=== PATIENT | female | born 1975 | race Caucasian/White ===

== ENCOUNTER 2020-02-03 10:28 | Outpatient (REF) | payer OTHER, SELFPAY ==
--- NOTE | 2020-02-03 | XR_ITS ---
EXAMINATION: XR CHEST CLINICAL INFORMATION: Other medical treatment. COMPARISON: Chest 11/21/2018 TECHNIQUE: 2 views of the chest were obtained. FINDINGS: No significant abnormality is noted involving the heart, lungs, mediastinum, bony thorax or soft tissues. XR/XR chest 2V IMPRESSION: Unremarkable chest examination.
[2020-02-03 11:40] LABS: MANUAL DIFF FLAG NO
[2020-02-03 11:58] LABS: Basophils Percent Auto 0.3 % (0-2); Eosinophils Absolute Auto 0.1 X10*3/uL (0.0-0.4); Eosinophils Percent Auto 0.7 % (0-4); Hematocrit 37.8 % (37-47); Hemoglobin 12.7 g/dl (12.0-16.0); Imm Gran Abs Auto 0.05 X10*3/uL (0.00-0.03); Imm Gran Pct Auto 0.5 % (0.0-0.4); Lymphocytes Absolute Auto 3.3 X10*3/uL (1.2-4.9); Lymphocytes Percent Auto 34.9 % (20-40); Mean Corpuscular HGB Conc 33.6 g/dl (31.0-35.0); Mean Corpuscular Hemoglobin 31.9 pg (27.0-33.0); Mean Platelet Volume 9.6 fL (9.4-12.3); Monocytes Absolute Auto 0.6 X10*3/uL (0.1-1.2); Monocytes Percent Auto 5.9 % (2-11); Neutrophils Absolute Auto 5.5 X10*3/uL (2.0-8.3); Neutrophils Percent Auto 57.7 % (45-73); Platelet Count 313 X10*3/uL (160-400); Red Blood Count 3.98 X10*6/uL (4.20-5.50); Red Cell Distribution Width 13.2 % (11.0-16.0); White Blood Count 9.6 X10*3/uL (4.8-10.8)
[2020-02-03 12:21] LABS: Cholesterol 166 mg/dL; HDL Cholesterol 54 mg/dL; LDL Cholesterol Calculated 99 mg/dl; Triglycerides 67 mg/dL
[2020-02-03 12:45] LABS: TSH reflex Free T4 0.46 mIU/mL (0.32-4.0); Vitamin D 25-OH Total 19.3 ng/mL (>30)
[2020-02-04 04:01] LABS: Syphilis Screen Nonreactive (Nonreactive)
[2020-02-04 04:04] LABS: ~HepC Num1 0.07 S/CO (0.00-0.79); ~Hepatitis C Antibody Nonreactive (Nonreactive)
[2020-02-04 04:05] LABS: HBsAGNum1 0.27 S/CO (0.00-0.99); HIV AB/AG Nonreactive (Nonreactive); HIV Num 1 0.25 S/CO (0.00-0.99); Hepatitis B Surface Antigen Negative (Negative)
[2020-02-08 11:35] LABS: CT PCR NOT DETECTED (Not Detect.); NG PCR NOT DETECTED (Not Detect.)
== END 2020-02-03 10:29 | disposition home or self-care (01) ==
LOC: HO.LAB 10:28
PROVIDERS: PCP Family Medicine; Visit Provider Family Medicine
DX: R53.83 Other fatigue (principal); Z92.89 Personal history of other medical treatment
CPT/HCPCS: 36415; 71046; 80061; 82306; 84443; 85025; 86481; 86780; 86803; 87340; 87389; 87491; 87591

== ENCOUNTER 2021-10-10 13:10 | Outpatient (REF) | payer MEDICAID, SELFPAY ==
--- NOTE | ~2021-10-10 | US_ITS ---
EXAMINATION: US LOWER EXTREMITY VENOUS (REFLUX EXAM), BILATERAL CLINICAL INDICATION: Chronic venous insufficiency with lower extremity varicose veins, pain COMPARISON: None. TECHNIQUE: Color flow triplex imaging and compression Doppler was performed to evaluate both the deep and the superficial systems bilaterally. To evaluate the superficial system, the examination was performed in the upright position. Color-flow Doppler ultrasound and compression ultrasound were utilized. In addition, maneuvers were utilized to demonstrate reflux. FINDINGS: 1. DEEP VENOUS ULTRASOUND OF THE RIGHT LOWER EXTREMITY: Common Femoral Vein: Compressible, normal respiratory variation and augmented flow. Femoral Vein: Compressible, normal color flow and augmentation. Popliteal Vein: Compressible, normal augmentation. Deep Reflux: There is no evidence of reflux in the deep system in either the common femoral vein or the popliteal vein. There is no evidence of a Pastor's cyst. 2. SUPERFICIAL ULTRASOUND WITH DOPPLER OF RIGHT LOWER EXTREMITY: GREAT SAPHENOUS VEIN: Saphenofemoral Junction: 0.5 cm; Reflux: 0 ms Proximal Thigh: 0.3 cm; Reflux: 0 ms Mid Thigh: 0.3 cm; Reflux: 0 ms Above Knee: 0.3 cm; Reflux: 0 ms At Knee: 0.2 cm; Reflux: 0 ms Below Knee: 0.2 cm; Reflux: 0 ms Mid Calf: 0.1 cm; Reflux: 0 ms Ankle: 4.2 cm; Reflux: 0 ms DUPLICATED MEDIAL GREAT SAPHENOUS VEIN: Diameter: None Imaged Reflux: NA DUPLICATED LATERAL GREAT SAPHENOUS VEIN: Diameter: None Imaged Reflux: NA SMALL SAPHENOUS VEIN: Proximal: 0.3 cm; Reflux: 0 ms Distal: 0.2 cm; Reflux: 0 ms VEIN OF GIACOMINI: None Imaged. PERFORATORS: Location: Mid thigh Size: 0.2 cm Reflux: None VARICOSITIES: Location: None Imaged Size: NA Reflux: NA 3. DEEP VENOUS ULTRASOUND OF THE LEFT LOWER EXTREMITY: Common Femoral Vein: Compressible, normal respiratory variation and augmented flow. Femoral Vein: Compressible, normal color flow and augmentation. Popliteal Vein: Compressible, normal augmentation. Deep Reflux: There is no evidence of reflux in the deep system in either the common femoral vein or the popliteal vein. There is no evidence of a Pastor's cyst. 4. SUPERFICIAL ULTRASOUND WITH DOPPLER OF LEFT LOWER EXTREMITY: GREAT SAPHENOUS VEIN: Saphenofemoral Junction: 0.5 cm; Reflux: 0 ms Proximal Thigh: 0.3 cm; Reflux: 0 ms Mid Thigh: 0.3 cm; Reflux: 0 ms Above Knee: 0.3 cm; Reflux: 0 ms At Knee: 0.2 cm; Reflux: 0 ms Below Knee: 0.3 cm; Reflux: 0 ms Mid Calf: 0.2 cm; Reflux: 0 ms Ankle: 0.2 cm; Reflux: 0 ms DUPLICATED MEDIAL GREAT SAPHENOUS VEIN: Diameter: None Imaged Reflux: NA DUPLICATED LATERAL GREAT SAPHENOUS VEIN: Diameter: None Imaged Reflux: NA SMALL SAPHENOUS VEIN: Proximal: 0.3 cm; Reflux: 0 ms Distal: 0.2 cm; Reflux: 0 ms VEIN OF GIACOMINI: None Imaged. PERFORATORS: Location: Mid calf Size: 0.2 cm Reflux: None VARICOSITIES: Location: None Imaged Size: NA Reflux: NA US/US venous duplex LE BI IMPRESSION: Right: No significant venous insufficiency Left: No significant venous insufficiency
== END 2021-10-10 13:11 | disposition home or self-care (01) ==
LOC: HO.US 13:10
PROVIDERS: Visit Provider Family Medicine
DX: I83.813 Varicose veins of bilateral lower extremities with pain (principal); M79.604 Pain in right leg; M79.605 Pain in left leg
CPT/HCPCS: 93970

== ENCOUNTER 2021-10-12 09:58 | Outpatient (REF) | payer MEDICAID, SELFPAY ==
--- NOTE | 2021-10-12 | PFT_ITS ---
INDICATION: Asthma. SPIROMETRY: FEV1 to FVC of 79% with an FEV1 of 2.02 L, which is 79% predicted and an FVC of 2.56 L which is 82% predicted. No significant response to bronchodilators noted. To note, the FEF 25% to 75% decreased down to 49% predicted, suspicious of asthma. The maximum voluntary ventilation 59% predicted. LUNG VOLUMES: Total lung capacity 104% predicted with a residual volume 130% predicted. DIFFUSION CAPACITY: DLCO 69% predicted. COMPARISONS: None. INTERPRETATION: No obstructive ventilatory defect. No significant response to bronchodilators noted, although there is evidence of small airway disease which is suspicious for asthma. There is also moderate decrease in maximum voluntary ventilation, which could be secondary to deconditioning versus worsening dynamic inspiratory capacity. Lung volumes do demonstrate significant air trapping likely secondary to the small airway disease and there is also mild diffusion impairment. If asthma is in the differential, methacholine challenge may be helpful in assessing for hyper-reactive airways, otherwise clinical correlation warranted. Ricardo Lewis MD MR/MODL / [id number]
== END 2021-10-12 09:59 | disposition home or self-care (01) ==
LOC: HO.RESP 09:58
PROVIDERS: PCP Family Medicine; Visit Provider Family Medicine
DX: J45.40 Moderate persistent asthma, uncomplicated (principal)
CPT/HCPCS: 94060; 94727; 94729

== ENCOUNTER 2023-06-09 14:12 | Outpatient (REF) | payer BC, SELFPAY ==
[2023-06-09 16:21] LABS: Hemoglobin 10.7 g/dl (12.0-16.0); Mean Corpuscular HGB Conc 32.4 g/dl (31.0-35.0); Mean Corpuscular Volume 86.4 fL (80.0-98.0); Mean Platelet Volume 9.6 fL (9.4-12.3); Platelet Count 447 X10*3/uL (160-400); Red Blood Count 3.82 X10*6/uL (4.20-5.50); Red Cell Distribution Width 16.2 % (11.0-16.0); White Blood Count 10.3 X10*3/uL (4.8-10.8)
[2023-06-09 16:51] LABS: TSH reflex Free T4 0.93 uIU/mL (0.32-4.0)
[2023-06-10 10:17] LABS: Iron 24 mcg/dL (30-160); Percent Iron Saturation 6 % (15-50); Total Iron Binding Capacity 380 mcg/dL (228-428); Unsaturated Iron Binding 356 ug/dL
[2023-06-10 10:31] LABS: Ferritin 9 ng/mL (10-250)
== END 2023-06-09 14:13 | disposition home or self-care (01) ==
LOC: HO.HHCL 14:12
PROVIDERS: Visit Provider Advanced Practice Midwife
DX: N93.9 Abnormal uterine and vaginal bleeding, unspecified (principal); R23.3 Spontaneous ecchymoses; D62 Acute posthemorrhagic anemia
CPT/HCPCS: 36415; 82728; 83540; 84443; 85027

== ENCOUNTER 2023-06-12 14:24 | Outpatient (REF) | payer BC, SELFPAY ==
--- NOTE | ~2023-06-12 | US_ITS ---
EXAMINATION: US PELVIS CLINICAL INFORMATION: Abnormal uterine bleeding COMPARISON: Previous CT of the abdomen and pelvis October 2013 TECHNIQUE: Ultrasound of the pelvis is performed using both transabdominal and transvaginal transducers along with Doppler. Transvaginal imaging is performed due to inadequate visualization transabdominally. FINDINGS: The uterus is anteverted and measures 9 x 4 x 5 cm in dimension. Endometrial thickness measures 1.3 cm. The endometrium is heterogeneous appearing. There is an apparent focal lesion in the endometrium measuring 1.6 x 1.2 x 1.8 cm with central feeding vessel questionable for a polyp. No other focal uterine lesion. Nabothian cysts in the cervix. Normal ovaries. Right ovary measures 2.4 x 1.3 x 1.6 cm. Left ovary measures 1.6 x 1.7 x 1.4 cm. No fluid in the pelvis. US/US pelvic and transvaginal IMPRESSION: Question endometrial polyp measuring 1.6 x 1.2 x 1.8 cm.
== END 2023-06-12 14:25 | disposition home or self-care (01) ==
LOC: HO.US 14:24
PROVIDERS: PCP Family Medicine; Visit Provider Advanced Practice Midwife
DX: N93.9 Abnormal uterine and vaginal bleeding, unspecified (principal)
CPT/HCPCS: 76830; 76856

== ENCOUNTER 2023-11-10 10:46 | Outpatient (AMB) | payer BC, SELFPAY ==
--- NOTE | 2023-11-10 10:57 | MHC.OFFVIS ---
Vital Signs 11/10/23 11:03 Height 5 ft Weight 108 lb BMI 21.1 Intake Visit Reasons: AUB Vp Clinical Research Required: No Information Interpreted: non-clinical & clinical Senior Interactive Developer: Senior Interactive Developer Present (Anastacia BAUTISTA) Accompanied by: Self / Same As Patient Allergies acetaminophen [From Percocet] Allergy (Mild, Unverified 11/10/23 11:04) HIVES oxycodone [From Percocet] Allergy (Mild, Unverified 11/10/23 11:04) HIVES Is last menstrual period known: Yes Last menstrual period: 10/06/23 HPI Comments Details: Presenting complaining of irregular menstrual cycles associated with passage of blood clots and pelvic cramping. Last co testing was in 03/19 was negative Last pelvic ultrasound done in 06/24 showed the following: The uterus is anteverted and measures 9 x 4 x 5 cm in dimension. Endometrial thickness measures 1.3 cm. The endometrium is heterogeneous appearing. There is an apparent focal lesion in the endometrium measuring 1.6 x 1.2 x 1.8 cm with central feeding vessel questionable for a polyp. No other focal uterine lesion. Nabothian cysts in the cervix. Normal ovaries. Right ovary measures 2.4 x 1.3 x 1.6 cm. Left ovary measures 1.6 x 1.7 x 1.4 cm. No fluid in the pelvis. 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 Sexual orientation: Straight/Heterosexual Gender identity: Female Female Reproductive History Menstrual Date of last menstrual period: 10/06/23 control method: permanent sterilization Total pregnancies: 5 Full term: 4 Number of Living Children: 4 Ab spontaneous: 1 Review of Systems Const All systems reviewed & are unremarkable except as noted in HPI and below Card Reports as per HPI Resp Reports as per HPI GI Reports as per HPI and Reports no additional complaints Reports as per HPI Physical Exam Vital Signs: BMI result Body Mass Index 21.1 Const General: cooperative, healthy appearing and comfortable Chest Chest palpation & inspection: normal inspection of the chest and normal palpation of entire chest wall Breast/axilla inspection: normal inspection of the breasts and normal inspection of the axillae Breast/axilla palpation: normal palpation of the breasts, normal palpation of the axillae and no axillary lymphadenopathy Resp Effort & Inspection: normal respiratory effort Auscultation: clear to auscultation bilaterally Percussion: percussion normal Cardio Palpation: normal PMI Rate: regular rate Rhythm: regular rhythm Heart sounds: no murmurs and no rubs Peripheral pulses: Peripheral pulses 2+ throughout GI Inspection: Yes normal to inspection Palpation (GI): Soft to palpation, nontender, no guarding, not rigid and No hepatosplenomegaly present Percussion: Yes normal to percussion Auscultation: normal bowel sounds Rectal Exam - Female: deferred General: Yes bladder normal to palpation External Female Exam: No lesion Speculum Exam - Vagina: normal appearance of the vagina, normal palpation, normal vaginal discharge and not erythematous Speculum Exam - Cervix: normal appearance of the cervix and normal palpation Bimanual exam- vagina & uterus: normal bimanual exam, normal palpation, uterine size normal, bladder normal to palpation, consistency normal and normal palpation Bimanual Exam- Adnexa, other: normal adnexae, no masses and no tenderness Assessment & Plan Assessment & Plan (1) Abnormal uterine bleeding: Comment: Endometrial polyp by ultrasound Code(s): N93.9 - Abnormal uterine and vaginal bleeding, unspecified Category: Medical Plan: Screening mammogram ordered, Co testing done, GC and chlamydia taken CBC, TSH, prolactin, FSH/LH, HCG, ordered. Discussed with the patient the different causes of abnormal bleeding including thyroid disorders, uterine and ovarian pathology, endometrial hyperplasia, carcinoma and other potential causes. Discussed with the patient the work up including CBC (to r/o anemia), TSH, prolactin, FSH/LH, pelvic Ultrasound, endometrial sampling to r/o endometrial pathology. Discussed with the patient the finding on ultrasound showing possible endometrial polyp, recommended hysteroscopy D&C possible polypectomy/myomectomy. Discussed with the patient the procedure , all benefits and risks including but not limited to inability to complete the procedure , insufficient endometrial tissue for a complete evaluation of the endometrial cavity , bleeding, infection, possible need for blood transfusion with all its risk ( HIV,syphilis, Hepatitis, anaphylaxis shock, others..), injury to bladder, rectum, possible need for laparoscopy/laparotomy or hysterectomy. The patient verbalized understanding and signed the consent. Instructions given the patient to stay NPO after midnight the day prior to the procedure and to take only the specific medication (s) discussed the morning of the surgical procedure and to schedule a 2 week postoperative appointment All questions answered and the patient verbalized understanding. Instructed the patient to schedule an appointment for an endometrial biopsy in 2 weeks. Orders: Orders PAP + HPV E6/E7 rfx 18/45 Today N93.9 - Abnormal uterine and vaginal bleeding, unspecified MM screening mammo BI Today Z12.31 - Encounter for screening mammogram for malignant neoplasm of breast Lutenizing Hormone Today N93.9 - Abnormal uterine and vaginal bleeding, unspecified Follicle Stimulating Hormone Today N93.9 - Abnormal uterine and vaginal bleeding, unspecified CT NG by PCR Today N93.9 - Abnormal uterine and vaginal bleeding, unspecified Complete Blood Count no Diff Today N93.9 - Abnormal uterine and vaginal bleeding, unspecified TSH reflex Free T4 Today N93.9 - Abnormal uterine and vaginal bleeding, unspecified Prolactin Today N93.9 - Abnormal uterine and vaginal bleeding, unspecified HCG Quantitative Today N93.9 - Abnormal uterine and vaginal bleeding, unspecified Coding Level of Care Code New Pt Level 3 (34685) Diagnoses Abnormal uterine bleeding N93.9
[2023-11-10 11:03] VITALS: BMI 21.1
== END 2023-11-10 12:49 | disposition home or self-care (01) ==
LOC: HO.HWS 10:47
PROVIDERS: PCP Family Medicine; Visit Provider Obstetrics & Gynecology
DX: N93.9 Abnormal uterine and vaginal bleeding, unspecified (principal)
CPT/HCPCS: 99203

== ENCOUNTER 2023-11-10 10:46 | Outpatient (REF) | payer BC, SELFPAY ==
[2023-11-10 15:48] LABS: CT PCR NOT DETECTED (Not Detect.); NG PCR NOT DETECTED (Not Detect.)
[2023-11-12 14:24] LABS: HPV mRNA E6/E7 Not Detected (Not Detected)
== END 2023-11-10 10:47 | disposition home or self-care (01) ==
LOC: HO.LNP 10:46
PROVIDERS: PCP Family Medicine; Visit Provider Obstetrics & Gynecology
DX: N93.9 Abnormal uterine and vaginal bleeding, unspecified (principal)
CPT/HCPCS: 87491; 87591; 87624; 88175

== ENCOUNTER 2023-11-11 10:09 | Outpatient (REF) | payer BC, SELFPAY ==
[2023-11-11 10:56] LABS: Hematocrit 37.3 % (37.0-47.0); Hemoglobin 12.2 g/dl (12.0-16.0); Mean Corpuscular HGB Conc 32.7 g/dl (31.0-35.0); Mean Corpuscular Hemoglobin 30.1 pg (27.0-33.0); Mean Corpuscular Volume 92.1 fL (80.0-98.0); Mean Platelet Volume 9.4 fL (9.4-12.3); Platelet Count 345 X10*3/uL (160-400); Red Blood Count 4.05 X10*6/uL (4.20-5.50); Red Cell Distribution Width 15.2 % (11.0-16.0); White Blood Count 8.7 X10*3/uL (4.8-10.8)
[2023-11-11 12:04] LABS: HCG Quantitative < 2 mIU/mL; TSH reflex Free T4 0.45 uIU/mL (0.32-4.0)
[2023-11-12 12:04] LABS: Follicle Stimulating Hormone 5.8 mIU/mL; Lutenizing Hormone 4.5 mIU/mL; Prolactin 8.2 ng/mL
== END 2023-11-11 10:10 | disposition home or self-care (01) ==
LOC: HO.LAB 10:09
PROVIDERS: PCP Family Medicine; Visit Provider Obstetrics & Gynecology
DX: N93.9 Abnormal uterine and vaginal bleeding, unspecified (principal)
CPT/HCPCS: 36415; 83001; 83002; 84146; 84443; 84702; 85027

== ENCOUNTER 2023-11-14 07:14 | Day surgery (SDC) | payer BC, SELFPAY ==
--- NOTE | 2023-11-14 07:38 | MHC.SHP ---
Pre-Procedural Eval Section A - 24 Hr Update-Section A only Date of Service: 11/14/23 The patient is an INPATIENT: No Changes since office visit: No Cold of Flu in the past 2 weeks, No New Medical Problems, No Changes in Medication and No Patient answered all questions The patient has been examined within 24 hours of the surgical procedure. The History & Physical has been completed within 30 days and I have reviewed it.: Yes Section B - Complete if H&P > 30 days Chief Complaint: Abnormal uterine and vaginal bleeding, Allergies: Allergies Allergy/AdvReac Type Severity Reaction Status Date / Time acetaminophen [From Percocet] Allergy Mild HIVES Unverified 11/10/23 11:04 oxycodone [From Percocet] Allergy Mild HIVES Unverified 11/10/23 11:04 Plan Diagnosis/Plan: Unchanged I have reviewed the history and physical and performed a pertinent physical examination on my patient. No changes have occurred unless specified. Time Spent With Patient Time: Total time managing care of this patient today ____ minutes.
[2023-11-14 07:42] VITALS: BMI 20.3
[2023-11-14 07:50] LABS: UPreg QC Valid YES; Urine Pregnancy NEGATIVE (NEGATIVE)
[2023-11-14 07:51] VITALS: BP 118/75; PULSE 66; RESP 15; TEMP 36.5; O2SAT 99
[2023-11-14] MEDS: Lactated Ringers 1,000 ML 100 ML IVCONT (07:52)
--- NOTE | 2023-11-14 07:55 | P.CONAN_ITS ---
Documented by User: Rufina Cooper NP 11/12/23 13:52 HPI - Anesthesia Eval Consult details Narrative: 48yo F for D&C Hysteroscopy,possible myomectomy,possible polypectomy, PMFSH Active Problems Active Problems: All Active Problems Abnormal uterine bleeding (Acute) Past Medical History Medical History Anxiety Asthma Anemia Family History Family History Mother Asthma HTN (hypertension) Hyperlipidemia Surgical History Surgical History (Updated 11/14/23 @ 07:40 by Cici Villanueva RN) History of excision of pilonidal cyst Hx of tubal ligation Social History Social History Household Members: Spouse and Children Housing: House Alcohol intake: current Alcohol intake frequency: holidays/special occasions only Patient Tobacco Use Status: Current everyday Tobacco user Tobacco use type: Cigarette Cigarette Packs Per Day: 1 Cigarettes Per Day: 10 Years Smoked: 15 Use of substances other than those prescribed or required for medical reasons: Yes Substance Use Type Other:: last used 11/12 Substance Use Frequency: Daily Are you DNR?: No Advance Directives: No Advance Directives Information Provided: Yes Current occupational status: employed 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 Sexual orientation: Straight/Heterosexual Gender identity: Female Meds Allergies Allergy/AdvReac Type Severity Reaction Status Date / Time oxycodone [From Percocet] Allergy Mild HIVES Verified 11/14/23 07:40 Home Medications ?Medication ?Instructions ?Recorded ?Confirmed ?Last Taken ?Type albuterol sulfate 90 mcg/actuation 2 puff inhalation Q6H PRN wheezing 11/10/23 11/14/23 Unknown History aerosol inhaler (Ventolin HFA) fluticasone furoate 100 1 inh inhalation DAILY 11/10/23 11/14/23 Unknown History mcg/actuation blister powder for inhalation (Arnuity Ellipta) fluticasone propionate 50 1 spray intranasal BID PRN Allergy 11/14/23 11/14/23 Unknown History mcg/actuation nasal Symptoms spray,suspension Assessment and Plan Assessment Anesthesia Assessment: Chart Reviewed Documented by User: Cici Gonzalez DO 11/14/23 07:55 [facility] Past Medical History Medical History Anxiety Asthma Anemia Family History Family History Mother Asthma HTN (hypertension) Hyperlipidemia Family history of problems with anesthesia: No Surgical History Surgical History (Updated 11/14/23 @ 07:40 by Cici Villanueva RN) History of excision of pilonidal cyst Hx of tubal ligation History of Problems with Anesthesia: No Social History Social History Household Members: Spouse and Children Housing: House Alcohol intake: current Alcohol intake frequency: holidays/special occasions only Patient Tobacco Use Status: Current everyday Tobacco user Tobacco use type: Cigarette Cigarette Packs Per Day: 1 Cigarettes Per Day: 10 Years Smoked: 15 Use of substances other than those prescribed or required for medical reasons: Yes Substance Use Type Other:: last used 11/12 Substance Use Frequency: Daily Are you DNR?: No Advance Directives: No Advance Directives Information Provided: Yes Current occupational status: employed 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 Sexual orientation: Straight/Heterosexual Gender identity: Female Meds Allergies Allergy/AdvReac Type Severity Reaction Status Date / Time oxycodone [From Percocet] Allergy Mild HIVES Verified 11/14/23 07:40 Home Medications ?Medication ?Instructions ?Recorded ?Confirmed ?Last Taken ?Type albuterol sulfate 90 mcg/actuation 2 puff inhalation Q6H PRN wheezing 11/10/23 11/14/23 Unknown History aerosol inhaler (Ventolin HFA) fluticasone furoate 100 1 inh inhalation DAILY 11/10/23 11/14/23 Unknown History mcg/actuation blister powder for inhalation (Arnuity Ellipta) fluticasone propionate 50 1 spray intranasal BID PRN Allergy 11/14/23 11/14/23 Unknown History mcg/actuation nasal Symptoms spray,suspension Exam Exam Date and Time: 11/14/23 0754 Height,Weight and Vital Signs: Height 5 ft Weight 47.174 kg Vital Signs Temperature 97.7 F 11/14/23 07:51 Pulse Rate 66 11/14/23 07:51 Respiratory Rate 15 11/14/23 07:51 Blood Pressure 118/75 11/14/23 07:51 Pulse Oximetry 99 11/14/23 07:51 Oxygen Delivery Method Room Air 11/14/23 07:51 Temperature 97.7 F 11/14/23 07:51 Pulse Rate 66 11/14/23 07:51 Respiratory Rate 15 11/14/23 07:51 Blood Pressure 118/75 11/14/23 07:51 Pulse Oximetry 99 11/14/23 07:51 Oxygen Delivery Method Room Air 11/14/23 07:51 Airway Mallampati Class: I TM Dist: >3cm Neck ROM: Full Loose/Missing/Broken Teeth: Yes (missing molars left side of mouth) Heart: S1S2 Lungs: CTAB Assessment and Plan Assessment Anesthesia Assessment: Anesthesia Plan Discussed and Chart Reviewed Final Anesthetic Review Family History of Problems with Anesthesia: No History of Problems with Anesthesia: No NPO: Yes ASA Class: II Final Preanesthetic Review: No Changes in Pt Med Stat, Meds/Allgs Chart Reviewed, Consent Obtained/Reviewed and Anes Risks/Benef Reviewed Patient Risk: Low Procedure Risk: Low Anesthetic Plan Anesthetic Plan: GA and Agree w/ Assess. and Plan Disposition: Standard PACU
--- NOTE | 2023-11-14 08:59 | P.BOP_ITS ---
Brief Operative Note Date of Service: 11/14/23 Pre-op diagnosis: Abnormal uterine bleeding, endometrial polyp by ultrasound Post-op diagnosis: same (Endometrial polyp) Procedure: Hysteroscopy D&C, Polypectomy Surgeon: Yovanny Horne MD Anesthesia: GLMA Was an Dynamics Ax Consultant used for this Procedure?: No Estimated blood loss (mL): 0 Pathology: other (Endometrial Scrapping. Polyp) Condition: stable Disposition: PACU
--- NOTE | 2023-11-14 09:00 | W.PM.OPN ---
Operative Note Operative Note Date of Service: 11/14/23 Narrative: Preop Diagnosis: Abnormal uterine bleeding, Endometrial polyp by US Operation: Diagnostic Hysteroscopy, Dilataion & Curettage and polypectomy Post Op Diagnosis: Endometrial Polyp QBL: Minimal Anesthesia: GLMA Surgeon: Yovanny Horne MD General Ledger Accountant: None Complication: None Pathology: Endometrial Scrapings, Endometrial polyp Procedure: The patient was put in the dorsal lithotomy position, scrubbed, and draped in the usual manner. A sterile speculum was inserted in the patient's vagina. The anterior lip of the cervix was grasped with a single tooth tenaculum. The cervix was dilated up to 5 mm, then the scope was inserted in the patient's uterus. Inspection revealed endometrial polyp. The Myosure Reach device was used; it was introduced through the operative channel and polypectomy done with no complications. The scope was then taken out from the uterine cavity, sharp curettings was carried on with minimal to moderate amount of tissues retrieved. At the end of the procedure, all instruments were taken out of the patient uterine and vaginal cavity. The single tooth tenaculum was removed and homeostasis was assured using pressure,. The patient tolerated the procedure well and was transferred to the PACU in a stable condition.
[2023-11-14 09:04] VITALS: BP 130/87; PULSE 80; RESP 14; TEMP 36.3; O2SAT 99
[2023-11-14 09:10] VITALS: BP 121/82; PULSE 81; RESP 14; O2SAT 99
[2023-11-14 09:15] VITALS: BP 112/75; PULSE 75; RESP 16; O2SAT 99
[2023-11-14 09:20] VITALS: BP 121/76; PULSE 75; RESP 16; O2SAT 99
[2023-11-14 09:35] VITALS: BP 120/83; PULSE 77; RESP 16; TEMP 36.1; O2SAT 100
== END 2023-11-14 10:10 | disposition home or self-care (01) ==
PROVIDERS: PCP Family Medicine; Visit Provider Obstetrics & Gynecology
PROC: 0UDB8ZZ Extraction of Endometrium, Via Natural or Artificial Opening Endoscopic (ICD-10-PCS; CPT 58558; principal; 2023-11-14 08:30)
DX: C54.1 Malignant neoplasm of endometrium (principal); N84.0 Polyp of corpus uteri; D64.9 Anemia, unspecified; J45.909 Unspecified asthma, uncomplicated; F41.9 Anxiety disorder, unspecified; Z98.51 Tubal ligation status; Z88.5 Allergy status to narcotic agent; E78.5 Hyperlipidemia, unspecified; F17.210 Nicotine dependence, cigarettes, uncomplicated; Z79.51 Long term (current) use of inhaled steroids
CPT/HCPCS: 58558; 81025; 88305; 88341; 88342; 88360; J1885; J2250; J2704; J3010

== ENCOUNTER → 2023-11-14 07:14 | Outpatient (BNV) | payer BC, SELFPAY | PROVIDERS: PCP Family Medicine; Visit Provider Obstetrics & Gynecology | DX: N84.0 Polyp of corpus uteri (principal); N93.9 Abnormal uterine and vaginal bleeding, unspecified | CPT/HCPCS: 58558 ==

== ENCOUNTER 2023-11-19 09:20 | Outpatient (AMB) | payer BC, SELFPAY ==
--- NOTE | 2023-11-19 09:21 | A.OFFVIS_ITS ---
Vital Signs 11/19/23 09:22 Height 5 ft Weight 108 lb BMI 21.1 Intake Visit Reasons: post op Recreation Coordinator Required: No Information Interpreted: non-clinical & clinical Accompanied by: Daughter Allergies oxycodone [From Percocet] Allergy (Mild, Verified 11/19/23 09:23) HIVES HPI Comments Details: The patient is presenting post hysteroscopy D&C done on 11/14/2023. No complaints minimal vaginal bleeding no feverishness chills or abdominal pain. The pathology showed the following: A. Endometrium, polypectomy: Endometrial adenocarcinoma, endometrioid type, FIGO grade 2, in a background of extensive endometrioid intraepithelial neoplasia/atypical hyperplasia (EIN/AH). B. Endometrium, curettage: Endometrial adenocarcinoma, endometrioid type, FIGO grade 2, in a background of endometrioid intraepithelial neoplasia/atypical hyperplasia (EIN/ AH) with secretory changes. COMMENT: Immunohistochemical studies for DNA mismatch repair proteins have been ordered and results will be reported in an addendum 11/10/2023 co testing was negative 06/24 Pelvic ultrasound showed the following: The uterus is anteverted and measures 9 x 4 x 5 cm in dimension. Endometrial thickness measures 1.3 cm. The endometrium is heterogeneous appearing. There is an apparent focal lesion in the endometrium measuring 1.6 x 1.2 x 1.8 cm with central feeding vessel questionable for a polyp. No other focal uterine lesion. Nabothian cysts in the cervix. Normal ovaries. Right ovary measures 2.4 x 1.3 x 1.6 cm. Left ovary measures 1.6 x 1.7 x 1.4 cm. No fluid in the pelvis. 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 Sexual orientation: Straight/Heterosexual Gender identity: Female Review of Systems Const All systems reviewed & are unremarkable except as noted in HPI and below Reports as per HPI and Reports no additional complaints GI Reports no additional complaints Reports no additional complaints Physical Exam Vital Signs: BMI result Body Mass Index 21.1 Assessment & Plan Assessment & Plan (1) Endometrial adenocarcinoma: Comment: Endometrioid grade 2 Code(s): C54.1 - Malignant neoplasm of endometrium Category: Medical Plan: Discussed with the patient the pathology results, the recommended surgical staging procedure, and the prognosis. The patient was referred to Branch Operations Specialist Onc for further management. All questions answered, the patient verbalized understanding. Appointment at [facility] table games shift manager Oncology scheduled on 11/[address] Whaley. The patient is aware. Orders: Referrals Gynecologic Oncology Referral C54.1 - Malignant neoplasm of endometrium Coding Level of Care Code Est Pt Level 3 (67381) Diagnoses Endometrial adenocarcinoma C54.1
[2023-11-19 09:22] VITALS: BMI 21.1
== END 2023-11-19 10:41 | disposition home or self-care (01) ==
LOC: HO.HWS 09:20
PROVIDERS: PCP Family Medicine; Visit Provider Obstetrics & Gynecology
DX: C54.1 Malignant neoplasm of endometrium (principal)
CPT/HCPCS: 99213

== ENCOUNTER → 2023-11-19 09:20 | Outpatient (BNVA) | payer BC, SELFPAY | PROVIDERS: PCP Family Medicine; Visit Provider Obstetrics & Gynecology ==

== ENCOUNTER → 2023-12-01 09:45 | Outpatient (BNV) | payer BC, SELFPAY | PROVIDERS: PCP Family Medicine; Visit Provider Internal Medicine | DX: Z12.31 Encounter for screening mammogram for malignant neoplasm of breast (principal) | CPT/HCPCS: 77063; 77067 ==

== ENCOUNTER 2023-12-01 09:49 | Outpatient (REF) | payer BC, SELFPAY ==
--- NOTE | ~2023-12-01 | MM_ITS ---
EXAMINATION: MM SCREENING DIGITAL BREAST TOMOSYNTHESIS, BILATERAL CLINICAL INFORMATION: Screening. Asymptomatic. COMPARISON: Mammography: Comparison is made with available priors TECHNIQUE: Digital breast mammography with tomosynthesis is performed in both the craniocaudal and mediolateral oblique views along with computer-aided detection (CAD). FINDINGS: There are scattered areas of fibroglandular density (ACR BI-RADS breast composition Category b). Left: There are no significant masses, abnormal calcifications, or other abnormalities. Right: Asymmetry superior breast posterior depth on MLO view. No suspicious calcifications or other abnormal findings. MM/MM tomosynthesis screening BI IMPRESSION: Additional imaging is recommended ASSESSMENT: BI-RADS BI-RADS 0 - Incomplete: Needs additional Imaging. RECOMMENDATION: 1. Additional views of the right breast 2. Targeted ultrasound if warranted after review of the additional views. 3. Radiology department staff will contact the patient for additional imaging. Additional Imaging required This examination should not preclude the clinical evaluation of a suspicious palpable abnormality. This patient's information was entered into a reminder system with a target due date for their next mammogram. Electronically signed by: Chantell Stein DO 12/11/2023 06:35 PM EDT
== END 2023-12-01 09:50 | disposition home or self-care (01) ==
LOC: HO.MAMMO 09:49
PROVIDERS: PCP Family Medicine; Visit Provider Obstetrics & Gynecology
DX: Z12.31 Encounter for screening mammogram for malignant neoplasm of breast (principal)
CPT/HCPCS: 77063; 77067

== ENCOUNTER 2023-12-30 13:15 | Outpatient (REF) | payer BC, SELFPAY ==
--- NOTE | ~2023-12-30 | MM_ITS ---
EXAMINATION: MM DIAGNOSTIC DIGITAL BREAST TOMOSYNTHESIS, RIGHT US BREAST LIMITED, RIGHT MAMMOGRAPHY: CLINICAL INFORMATION: Diagnostic; evaluate one view asymmetric density upper outer right breast seen on MLO view only, posterior depth. This has approximately 4 associated punctate calcifications . COMPARISON: Mammography: 12/01/2023, 10/06/2017. TECHNIQUE: Digital breast tomosynthesis is performed in the following views: Full field 3-D exaggerated lateral right CC view, as well as a 3-D spot compression right MLO view. FINDINGS: There are scattered areas of fibroglandular density (ACR BI-RADS breast composition Category b). Examination demonstrates a mildly lobulated oval density in the far upper far outer posterior right breast, with a few associated punctate calcifications (approximately 4). In retrospect, in 2018, this was likely present and appears unchanged in morphology and size. No definite correlate on the normal CC projection due to the posterior lateral location, with a definite correlate seen on the exaggerated lateral CC view right breast. This could be a prominent glandular focus versus a fibroadenoma or variant which has begun to calcify. This will be evaluated with ultrasound. ULTRASOUND: CLINICAL INFORMATION: As above COMPARISON: None TECHNIQUE: Targeted sonographic evaluation was performed using a high frequency linear transducer. Attention to the upper outer quadrant of the right breast was given. Selected archived documentation. FINDINGS: RIGHT BREAST: There is a mixture of fatty and fibroglandular tissue. No suspicious mass is present. No cystic abnormalities. Appears to be a prominent lobule of breast tissue with associated specular punctate echoes suggesting calcifications. This measures similarly and is in the appropriate location of the mammographic index finding of concern. No definite suspicious correlate. This is consistent with a lobule of normal breast tissue with benign calcifications. There are no suspicious findings. MM/MM tomosynthesis added views R IMPRESSION: -There are no findings suspicious for malignancy right breast. -Index mammographic abnormality in the upper outer right breast, posterior one third, correlates on ultrasound with a prominent parenchymal lobule. These are benign findings and no further follow-up recommended. -Recommend the patient resume routine annual screening. OVERALL ASSESSMENT: Mammography: BI-RADS 2 - Benign Findings Ultrasound: BI-RADS 2 - Benign Findings RECOMMENDATION: 1 year F/U This patient's information was entered into a reminder system with a target due date for their next mammogram. Electronically signed by: Cali Aguilar MD 12/30/2023 02:24 PM EDT
== END 2023-12-30 13:16 | disposition home or self-care (01) ==
LOC: HO.MAMMO 13:15
PROVIDERS: PCP Family Medicine; Visit Provider Obstetrics & Gynecology
DX: N64.89 Other specified disorders of breast (principal)
CPT/HCPCS: 76642; 77061; 77065

== ENCOUNTER → 2023-12-30 13:30 | Outpatient (BNV) | payer BC, SELFPAY | PROVIDERS: PCP Family Medicine; Visit Provider Radiology Diagnostic Radiology | DX: R92.1 Mammographic calcification found on diagnostic imaging of breast (principal) | CPT/HCPCS: 76642; 77061; 77065 ==

== ENCOUNTER 2024-11-03 14:55 | Outpatient (REF) | payer BC, SELFPAY ==
--- NOTE | ~2024-11-03 | XR_ITS ---
EXAMINATION: XR KNEE, LEFT CLINICAL INFORMATION: left knee pain COMPARISON: None available. TECHNIQUE: AP and lateral views of the left knee. FINDINGS: There is no joint effusion. Joint spaces are preserved. There are no osteophytes. No fracture is identified. XR/XR knee LT 2V IMPRESSION: Unremarkable left knee. Electronically signed by: Thang Higgins MD 11/03/2024 03:27 PM EDT
[2024-11-03 16:41] LABS: Hemoglobin A1C 123.8398 umol/L; Total Hemoglobin (HGBA1C) 3485.6912 umol/L
[2024-11-03 16:47] LABS: Anion Gap 11 (12-20); Blood Urea Nitrogen 15 mg/dL (9-16); Calcium 9.1 mg/dL (8.4-10.2); Carbon Dioxide 25 mmol/L (22-29); Chloride 107 mmol/L (96-108); Cholesterol 184 mg/dL (<200); Estimated Glomerular Filt Rate > 60; HDL Cholesterol 54 mg/dL (>40); Potassium 3.9 mmol/L (3.3-5.1); Sodium 139 mmol/L (135-145); Triglycerides 348 mg/dL (<150)
--- OUTSIDE RECORDS SUMMARY | 2024-11-03 17:09 | XMS_ITS | Encounter Summary ---
Author Organization [employer] Address [address] [facility] 7 [place] [address] Care Team Providers Care Edi Programmer Analyst Name Role Phone Lisbet Ribeiro MD Primary Care Provider [phone] Reason for Visit * Reason Onset Date Comments Appointment Request 07/13/2024 Encounter Details Date Type Department Care Team ([facility] Contact Info) Description 07/13/2024 Telephone [facility] MEDICINE [address] [place], [place] [phone] Lisbet Ribeiro MD [address] [place], [place] [phone] Appointment Request Social History Tobacco Use Types Packs/Day Years Used Date Smoking Tobacco: Every Day Cigarettes Passive Smoke Exposure: Current Smokeless Tobacco: Never Alcohol Use Standard Drinks/Week Comments Not Currently 0 (1 standard drink = 0.6 oz pur e alcohol) Depression Answer Date Recorded Patient Health Questionnaire-9 Score 5 07/02/2023 Patient Health Questionnaire-9 Score 5 07/02/2023 Last PHQ-9: Questionnaire Data Not on file 0 07/02/2023 Housing Stability Answer Date Recorded What is your housing situation today? I have christopher claudio 07/02/[address] you li ve. Do you have problems with any of the following? None of the above 07/02/2023 Food Insecurity Answer Date Recorded Within the past 12 months, y ou worried that your food would run out before you got money to buy more: Never True 07/02/2023 Within the past 12 months,th e food you bought just didn't last and you didn't have enough money to get more: Never True 03/2023 Transportation Answer Date Recorded In the past 12 months, has l ack of transportation kept you from medical appts, meetings, work or from getting things needed for daily living? No 07/02/2023 Utilities Answer Date Recorded In the past 12 months, has t he electric, gas, oil or water company threatened to shut off services in your home? No 07/02/2023 Depression Answer Date Recorded Patient Health Questionnaire-2 Score 2 07/02/2023 Comments No Sex and Gender Information Value Date Recorded Sex Assigned at Female 12/31/2021 10:15 AM EDT Legal Sex Female 10:15 AM EDT Gender Identity Female 12/31/2021 10:15 AM EDT Sexual Orientation Straight 12/31/2021 10 :15 AM EDT documented as of this encounter Miscellaneous Notes * Telephone Encounter - Rody Caro - 07/13/2024 11:15 AM EDT Tc from pt requesting a physical appt Machine Tool Mechanic unable to find an appt documented in this encounter Plan of Treatment Not on file documented as of this encounter Visit Diagnoses Not on filedocumented in this encounter Additional Health Concerns Assessment Noted Time PHQ-9 Depression Total Score: 5 07/02/19 24 10:53 AM EDT documented as of this encounter Care Teams Edi Programmer Analyst Relationship Specialty Start Date End Date Lisbet Ribeiro MD [address] [place] [id number] PCP - General Family Medicine 01/01/12 documented as of this encounter
--- OUTSIDE RECORDS SUMMARY | 2024-11-03 17:09 | XMS_ITS | Encounter Summary ---
Author Organization [employer] Address [address] [facility] [address] [place] [address] Care Team Providers Care Help Desk Supervisor Name Role Phone Lisbet Ribeiro MD Primary Care Provider [phone] Reason for Visit * Reason Comments Med Refill Encounter Details Date Type Department Care Team ([facility] Contact Info) Description 08/08/2023 Refill [facility] MEDICINE [address] [place], [place] [phone] Nina Shearer CNM [address] [place] [address] Social History Tobacco Use Types Packs/Day Years [...] encounter Miscellaneous Notes * Telephone Encounter - Randi Velez RN - 08/08/2023 1:19 PM EDT TC placed to pt [phone] in regards to below. Pt informed she needs to have BW completed beforemedication can be sent to the lab to ensure she still needs iron supplementation. Pt verbalized understanding and reports she will have BW completed on Friday. Pt to f/u PRN. * Telephone Encounter - Nina Shearer CNM - 08/08/2023 10:01 AM EDT Please ask her to get labs ordered from 07/2023 to determine if she needs to continue. Thanks! documented in this encounter Plan of Treatment Not on file documented as of this encounter Visit Diagnoses Not on filedocumented in this encounter Additional Health Concerns Assessment Noted Time PHQ-9 Depression Total Score: 5 07/02/19 24 10:53 AM EDT documented as of this encounter Care Teams Help Desk Supervisor Relationship Specialty Start Date End Date Lisbet Ribeiro MD [address] [place] [address] PCP - General Family Medicine 01/01/12 documented as of this encounter
--- OUTSIDE RECORDS SUMMARY | 2024-11-03 17:09 | XMS_ITS | Encounter Summary ---
Author Organization [employer] Address [address] [place] [address] [address] [place] [address] Care Team Providers Care Material Engineer Name Role Phone Lisbet Ribeiro MD Primary Care Provider [phone] Encounter Details Date Type Department Care Team (Late st Contact Info) Description 02/28/2022 Abstract [facility] MEDICINE [address] [place], [place] [phone] Lisbet Ribeiro MD [address] [place], [place] [phone] Social History Tobacco Use Types Packs/Day Years Used Date Smoking Tobacco: Never Assessed Comments Unknown Sex and Gender Information Value Date Recorded Sex Assigned at Female 12/31/2021 10:15 AM EDT Legal Sex Female 10:15 AM EDT Gender Identity Female 12/31/2021 10:15 AM EDT Sexual Orientation Straight 12/31/2021 10 :15 AM EDT documented as of this encounter Plan of Treatment Not on file documented as of this encounter Visit Diagnoses Not on filedocumented in this encounter Care Teams Material Engineer Relationship Specialty Start Date End Date Lisbet Ribeiro MD [address] [place] [address] PCP - General Family Medicine 01/01/12 documented as of this encounter
--- OUTSIDE RECORDS SUMMARY | 2024-11-03 17:09 | XMS_ITS | Clinical Summary ---
Author Organization [address] Address [address] [place] [address] Phone Care Team Providers Care Linux Devops Engineer Name Role Phone Unavailable Primary Care Provider Unavailabl e Social History Tobacco Use Types Packs/Day Years Used Date Smoking Tobacco: Never Assessed Comments Unknown Sex and Gender Information Value Date Recorded Sex Assigned at Not on file Legal Sex Female 5:44 AM EST Gender Identity Not on file Sexual Orientation Not on file Plan of Treatment Health Maintenance Due Date Last Done Comments Breast Cancer Screening 1977 DTaP,Tdap,and Td Vaccines (1 - Tdap) 1996 Hepatitis B Vaccines (1 of 3 - 19+ 3-dose series) 1996 Cervical Cancer Screening: P ap Smear 1998 Depression Screening 03/03/2024 COVID-19 Vaccine ( - 2023-2 5 season) 2024 Influenza Vaccine (#1) 2024 HIB Vaccines Aged Out No longer eligi ble based on patient's age to complete this topic HPV Vaccines Aged Out No longer eligi ble based on patient's age to complete this topic Hepatitis A Vaccines Aged Out No long er eligible based on patient's age to complete this topic IPV Vaccines Aged Out No longer eligi ble based on patient's age to complete this topic MMR Vaccines Aged Out No longer eligi ble based on patient's age to complete this topic Meningococcal ACWY Vaccine Aged Out N o longer eligible based on patient's age to complete this topic Meningococcal B Vaccine Aged Out No l onger eligible based on patient's age to complete this topic Pneumococcal Vaccine: Pediat rics (0 to 5 Years) and At-Risk Patients (6 to 49 Years) Aged Out No longer eligible b ased on patient's age to complete this topic RSV Immunization Patients Un ximena 20 months Aged Out No longer eligible b ased on patient's age to complete this topic Varicella Vaccines Aged Out No longer eligible based on patient's age to complete this topic
--- OUTSIDE RECORDS SUMMARY | 2024-11-03 17:09 | XMS_ITS | Clinical Summary ---
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 chlorhexidine (Peridex) 0.12 % solution RINSE MOUTH WITH 15ML (1 CAPFUL) FOR 30 SECONDS IN MORNING AND EVENING AFTER BRUSHING, THEN SPIT 2 Active fluticasone (Flonase) 50 MCG/ACT nasal spray Administer 1 spray into affected nostril(s) at bed time. 1 Active loratadine (Claritin) 10 MG tablet Take 1 tablet by mouth at bed time. 1 Active nicotine polacrilex (Commit) 4 MG lozenge Take 1 tablet by mouth every 2 (two) hours. 1 Active ibuprofen 600 MG tablet One tablet every 8 hours with food x 7 days 21 tablet 1 4 Active fluticasone furoate (Arnuity Ellipta) 100 MCG/ACT inhaler INHALE 1 PUFF BY MOUTH EVERY DAY RINSE MOUTH AFTER USING. 30 each 2 4 Active Ventolin HFA 108 (90 Base) MCG/ACT inhaler INHALE 2 PUFFS EVERY 6 HOURS NEEDED FOR WHEEZING 18 g 1 4 Active cholecalciferol (Vitamin D-3) 50 MCG (2000 UT) capsule Take 1 capsule (50 mcg) by mouth Once per day. 90 capsule 3 4 Active escitalopram (Lexapro) 5 MG tablet Take 2 tablets by mouth daily 60 tablet 3 5 Active Active Problems Problem Noted Date Diagnosed Date S/P total hysterectomy and bilateral salpingo-oo phorectomy 01/11/2024 Assessment & Plan (01/11/2024 5:32 PM EST): - total laparoscopic hysterectomy and bilateral salpingo-oophorectomy for endometrial cancer on 12/19/[address] Rojas - high risk for osteoporosis - evaluate with DEXA At high risk for osteoporosis 01/11/2024 Assessment & Plan (01/11/2024 5:47 PM EST): - risk factors: s/p BSO / ovarian insufficiency; smoking; BMI < 20 (not current); vitamin D deficiency - current 10-year major fracture risk is 3.9% < 8.4% - consider reassessing again in 1 year for early osteoporosis screening with DEXA - optimize risk factor management Endometrial cancer 11/19/2023 Assessment & Plan (01/06/2024 12:11 PM EST): - [facility] - [facility] - Endometrial biopsy on 11/14/23. 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 - s/p TLH/BSO on 12/19/[address] Anglin - patient has appointment today with Dr. Anglin to discuss further management plan Assessment & Plan (11/19/2023 6:21 AM EDT): - AUB - [facility]. - Endometrial biopsy on 11/14/23. 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 - Anemia 07/06/2023 Assessment & Plan (07/06/2023 6:31 AM EDT): - in a setting of AUB - continue current iron supplementation and repeat CBC in 3 mo Chronic pain of right knee 07/03/2023 Assessment & Plan (01/06/2024 12:12 PM EST): - X-rays of right knee ordered for further evaluation - patient is interested in PT Assessment & Plan (07/03/2023 12:49 AM EDT): - X-rays of right knee ordered for further evaluation Syncope 07/03/2023 Assessment & Plan (07/06/2023 6:25 AM EDT): - several syncopal episodes - SHYANN in 2017 and Holter monitor in 2019, which showed mostly normal sinus rhythm, with extremely rare premature beats - most recent episode in May 2023, seen in ED. Head CT was normal Palpitation 07/03/2023 Assessment & Plan (07/06/2023 6:23 AM EDT): - several syncopal episodes - SHYANN in 2017 and Holter monitor in 2019, which showed mostly normal sinus rhythm, with extremely rare premature beats Bilateral leg pain 04/01/2022 Assessment & Plan (01/06/2024 11:29 AM EST): - venous insufficiency? - evaluated with venous study in Oct 2021, which showed no significant venous insufficiency - leg elevation - avoid rapid weight gain without exercising; gradual weight gain with exercise - evaluate with X-ray Assessment & Plan (04/01/2022 12:38 PM EST): - venous insufficiency? - evaluated with venous study in Oct 2021, which showed no significant venous insufficiency - leg elevation - avoid rapid weight gain without exercising; gradual weight gain with exercise - evaluate with X-ray Pain of right heel 04/01/2022 Assessment & Plan (04/01/2022 12:13 PM EST): - likely plantar fasciitis, possible Achilles tendonitis - ice, judicious use of NSAIDs, stretching exercise, comfortable shoes - refer to physical therapy - pt declined a referral to specialist at this time Tobacco use 04/01/2022 Assessment & Plan (01/06/2024 12:13 PM EST): - continue working on smoking cessation Assessment & Plan (07/06/2023 6:24 AM EDT): - continue working on smoking cessation Assessment & Plan (04/01/2022 12:30 PM EST): - continue working on smoking cessation Generalized anxiety disorder 02/28/2022 Assessment & Plan (01/06/2024 12:13 PM EST): - previously connected with [facility]. Dr. Silva - previously taking medications, but she is no longer taking it or seeing [facility] provider - patient agreed to restart counseling. Will refer to S. - patient is also interested in medication. Will start Lexapro Assessment & Plan (07/06/2023 6:26 AM EDT): - previously connected with [facility]. Dr. Silva - previously taking medications, but she is no longer taking it or seeing [facility] provider - continue taking care of behavioral health Assessment & Plan (04/01/2022 12:18 PM EST): - previously connected with [facility]. Dr. Silva - previously taking medications, but she is no longer taking it or seeing [facility] provider - continue taking care of behavioral health Posttraumatic stress disorder 02/03/2017 Assessment & Plan (07/06/2023 6:26 AM EDT): - previously seeing behavioral health service provider - patient is able to contract her safety today Vitamin D deficiency 10/22/2016 Assessment & Plan (01/11/2024 5:51 PM EST): - check vitamin D - previously on Vitamin D 2000 units daily - now at even higher risk for osteoporosis - restart Vit D Assessment & Plan (07/06/2023 6:24 AM EDT): - check vitamin D and Tx accordingly Allergic rhinitis 04/28/2014 Assessment & Plan (07/06/2023 6:26 AM EDT): - continue loratadine and fluticasone nasal - work on smoking cessation Assessment & Plan (04/01/2022 12:36 PM EST): - continue loratadine and fluticasone nasal - work on smoking cessation Asthma 12/14/2012 Assessment & Plan (01/06/2024 11:29 AM EST): - 10/12/21 PFT small airway disease, recommended methacholine challenge test - continue albuterol HFA prn - previously on Flovent HFA, but has not been adherent; will switch to mometasone (Asmanex) - consider ICS / LABA prn - schedule methacholine challenge test - work on smoking cessation Assessment & Plan (07/06/2023 6:30 AM EDT): - 10/12/21 PFT small airway disease, recommended methacholine challenge test - continue albuterol HFA prn - previously on Flovent HFA, but has not been adherent; will switch to mometasone (Asmanex) - consider ICS / LABA prn - schedule methacholine challenge test - work on smoking cessation Assessment & Plan (04/01/2022 12:36 PM EST): - 10/12/21 PFT small airway disease, recommended methacholine challenge test - continue albuterol HFA prn - previously on Flovent HFA, but has not been adherent - consider ICS / LABA prn - schedule methacholine challenge test - work on smoking cessation Resolved Problems Problem Noted Date Diagnosed Date Resolved Date Abnormal uterine bleeding (AUB) 07/06/2023 01/11/2024 Assessment & Plan (07/06/2023 6:30 AM EDT): - US on 06/12/23 showed endometrial polyp - upcoming appointment with [facility] Tinea pedis of both feet 04/01/202207/2023 Assessment & Plan (04/01/2022 12:14 PM EST): - aerate between toes - terbinafine topical Underweight 12/14/2012 01/11/2024 Encounters Date Type Department Care Team Description 09/09/2024 Refill [facility] [address] [place] [address] Lisbet Ribeiro MD 09/08/2024 Telephone [facility] [address] [facility] [place] [address] Jazmín Greco MA chart prep 08/31/2024 Patient Outreach [facility] [address] [place] [address] Lisbet Ribeiro MD Pre-visit Planning ([facility] unable to reach [facility]) from Last 3 Months Immunizations Immunization Administration Dates Next Due DTaP 06/18/1980, 9,01/16/1978,12/18,1977 Hep B, adult 03/18/2013,08/13/2007,09/18/2006 IPV 07/30/1978, 8,1977,10/18 Influenza injectable quadriv alent IIV4 with preservative 02/03/2017,12/29/2014 Influenza injectable quadriv alent preservative free 01/25/2020,12/01/2018,03/26/2016,04/28 MMR 04/07/1991,07/30/1978 Pfizer Covid-19 Vaccine 12+ 07/02/2023,0 08/01/2021,08/15/2020,07/21 Pneumococcal Conjugate PCV 20 07/02/2023 Pneumococcal Polysaccharide PPSV23 12/14/2012 TD (adult), 2 Lf tetanus tox oid, preservative free, adsorbed 09/09/2003 Tdap 07/02/2023,12/14/2012 Social History Tobacco Use Types Packs/Day Years [...] Orientation Straight 12/31/2021 10 :15 AM EDT Last Filed Vital Signs Vital Sign Reading Time Taken Comments Blood Pressure 111/76 01/06/2024 11:12 AM EST Pulse 96 01/06/2024 11:12 AM EST Temperature 36.1 C (96.9 F) 01/06/2024 11:12 AM EST Respiratory Rate 12 01/06/2024 11:12 AM EST Oxygen Saturation 98% 01/06/2024 11:12 AM EST Inhaled Oxygen Concentration - - Weight 47.7 kg (105 lb 2 oz) 01/06/2024 11:12 AM EST Height 152.1 cm (4' 11.88 ) 01/06/2024 11:12 AM EST Body Mass Index 20.61 01/06/2024 11:12 AM EST Plan of Treatment Health Maintenance Due Date Last Done Comments CT Colonography 1975 Colonoscopy 1977 Colorectal Cancer Screening 1975 FIT DNA/Cologuard 1977 FIT 1977 FOBT 1975 Sigmoidoscopy 1975 Disability Screening 1977 Alcohol/Substance Use Screening 1989 Depression Screening 07/01/2024 07/02/2023, 07/02/19 24 SDOH Screening 07/01/2024 07/02/2023 COVID-19 Vaccine ( season) 2024 07/02/2023, 08/01/2021, 08/15/2020, Additional history exists Influenza Vaccine (#1) 2024 , 12/01/2018, 02/03/2017, Additional history exists Tobacco Screening 01/05/2025 01/06/2024 Family Planning (PISQ) 01/10/2025 01/11/2024 Lipid Panel 03/28/2025 11/03/2024, 03/04, 02/03/2020 Mammogram 12/29/2025 12/30/2023, 11/03, 10/07/2017 Zoster Vaccines (1 of 2) 06/24/2027 DTaP/Tdap/Td Vaccines (7 - Td or Tdap) 07/01/2033 07/02/2023, 12/14/2012, 09/09/2003, Additional history exists RSV Patients and Patients Aged 60 years or older (1 - 1-dose 75+ series) 2052 IPV Vaccines Completed 07/30/1978, 01/01, 1977, Additional history exists Hepatitis B Vaccines Completed 03/18/2013, 08/13/2007, 09/18/2006 HIV Screening Completed 03/28/2020, 02/03/2020 Hepatitis C Screening Completed 03/28/2020, 020 Pneumococcal Vaccine: Pediatrics (0 to 5 Years) and At-Risk Patients (6 to 49) Years Completed 07/02/2023, 12/14/2012 Cervical Cancer Screening Discontinued HPV/Cotest Discontinued 11/10/2023, 03/05, 03/26/2016 Pap Smear Discontinued 11/10/2023, 04/01/2022 HIB Vaccines Aged Out No longer eligi [...] patient's age to complete this topic Meningococcal Vaccine Aged Out No karol mita eligible based on patient's age to complete this topic RSV under 20 months Aged Out No longe r eligible based on patient's age to complete this topic Rotavirus Vaccines Aged Out No longer eligible based on patient's age to complete this topic Procedures Procedure Name Priority Date/Time Associated Diagnosis Comments BASIC METABOLIC PANEL Routine 11/03/2024 2:59 PM EDT Vitamin D deficiency VITAMIN D,25-OH,TOTAL,IA Routine 11/03/2024 2:59 PM EDT Vitamin D deficiency HEMOGLOBIN A1C Routine 11/03/2024 2:59 PM EDT Screening for diabetes mellitus LIPID PANEL WITH REFLEX TO DIRECT LDL Routine 11/03/2024 2:59 PM EDT Screening for lipid disorders XR KNEE 1-2 VIEWS LEFT Routine 11/03/2024 2:29 PM EDT Left knee pain, unspecified chronicity BI US BREAST LIMITED RIGHT Routine 12/30/2023 2:00 PM EDT THINPREP IMAGING PAP AND HPV MRNA E6/E7 WITH REFLEX TO HPV 16,18/45 Routine 11/10/2023 10:46 AM EDT ZZZ HISTORICAL HEPATITIS C AB W/REFL TO HCV RNA, QN, PCR Routine 03/28/2020 1:55 PM EST HIV 1/2 ANTIGEN/ANTIBODY, FOURTH GENERATION W/RFL Routine 03/28/2020 1:55 PM EST from Last 3 Months or Most Recently Relevant to Health Maintenance Results * Hemoglobin A1c (11/03/2024 2:59 PM EDT) Hemoglobin A1c 5.4 <6.0 % [facility] Comment:Hemoglobin A1C Refer ence Range Adults: 4.8 - 6.0 % Non diabetic: < 6.0 % Goal: < 7.0 %Additional Action Suggested: > 8.0 %Note: Hemoglobin A1c results are invalid for patients with abnormal amounts of HbF. Blood transfusions may impact the HbA1c concentration in the patient sample. Estimated Average Glucose 108 mg/dL [facility] Comment:eAG = Estimated ave rage glucose which is %A1C expressed asaverage glucose, using the formula of the S6J-LcqvbqjYoebmdm Glucose study (ADAG), Diabetes Care, Vol.31,#8,Oct. 2007 Blood Venous blood specimen / Unknown 11/03/2024 2:59 PM EDT 11/03/2024 4:17 PM EDT us Lisbet Ribeiro MD LAB BLOOD ORDERABLES Final Resul t [facility] [address] [place] [phone] * XR Knee 1-2 Views Left (11/03/2024 2:29 PM EDT) Anatomical Region Laterality Modality Lower Extremities, Knee Left Radiogra phic Imaging 11/03/2024 2:2 9 PM EDT Narrative 11/03/2024 3:29 PM EDT [address] [address] XRay Report Signed Patient: Pita Streeter MR#: [id number] : 1975 Acct:[id number] Age/Sex: 49 / F ADM Date: 11/03/24 Loc: [facility] Attending Dr: Lisbet Ribeiro MD Ordering Physician: Lisbet Ribeiro MD Date of Service: 11/03/24 Procedure(s): XR knee LT 2V Accession Number(s): [id number] cc: Lisbet Ribeiro MD Reason for Exam: left knee pain EXAMINATION: XR KNEE, LEFT CLINICAL INFORMATION: left knee pain COMPARISON: None available. TECHNIQUE: AP and lateral views of the left knee. FINDINGS: There is no joint effusion. Joint spaces are preserved. There are no osteophytes. No fracture is identified. XR/XR knee LT 2V IMPRESSION: Unremarkable left knee. Electronically signed by: Thang Higgins MD 11/03/2024 03:27 PM EDT Dictated By: Thang Higgins MD Signed By: <Electronically signed by Thang Higgins MD in OV> 11/03/24 1527 DD/ 1429 TD/TT: 11/03/24 1430 Sr. Operations Manager: Procedure Note Kalyani, Image - 11/03/[address] [place] [address] XRay Report Signed Patient: Pita Streeter MMR#: [id number] : 1975Acct:[id number] Age/Sex: 49 / FADM Date: 11/03/24 Loc: [facility] Attending Dr: Lisbet Ribeiro MD Ordering Physician: Lisbet Ribeiro MD Date of Service: 11/03/24 Procedure(s): XR knee LT 2V Accession Number(s): [id number] cc: Lisbet Ribeiro MD Reason for Exam: left knee pain EXAMINATION: XR KNEE, LEFT CLINICAL INFORMATION: left knee pain COMPARISON: None available. TECHNIQUE: AP and lateral views of the left knee. FINDINGS: There is no joint effusion. Joint spaces are preserved. There are no osteophytes. No fracture is identified. XR/XR knee LT 2V IMPRESSION: Unremarkable left knee. Electronically signed by: Thang Higgins MD 11/03/2024 03:27 PM EDT Dictated By: Thang Higgins MD Signed By: <Electronically signed by Thang Higgins MD in OV> 11/03/24 1527 DD/ 1429 TD/TT: 11/03/24 1430 Sr. Operations Manager: us Lisbet Ribeiro MD IMG XR PROCEDURES Final Result * BI US Breast Limited Right (12/30/2023 2:00 PM EDT) Anatomical Region Laterality Modality Breast Right Ultrasound 12/30/2023 2:00 PM EDT Narrative 12/30/2023 2:27 PM EDT [address] [place] [address] Ultrasound Report Signed Patient: Pita Streeter MR#: [id number] : 1975 Acct:[id number] Age/Sex: 48 / F ADM Date: 12/30/23 Loc: HO.MAMMO Attending Dr: Yovanny Horne MD Ordering Physician: Yovanny Horne MD Date of Service: 12/30/23 Procedure(s): US breast RT limited mamm only Accession Number(s): [id number] cc: Lisbet Ribeiro MD; Yovanny Horne MD EXAMINATION: MM DIAGNOSTIC DIGITAL BREAST TOMOSYNTHESIS, RIGHT US BREAST LIMITED, RIGHT MAMMOGRAPHY: CLINICAL INFORMATION: Diagnostic; evaluate one view asymmetric density upper outer right breast seen on MLO view only, posterior depth. This has approximately 4 associated punctate calcifications . COMPARISON: Mammography: 12/01/2023, 10/06/2017. TECHNIQUE: Digital breast tomosynthesis is performed in the following views: Full field 3-D exaggerated lateral right CC view, as well as a 3-D spot compression right MLO view. FINDINGS: There are scattered areas of fibroglandular density (ACR BI-RADS breast composition Category b). Examination demonstrates a mildly lobulated oval density in the far upper far outer posterior right breast, with a few associated punctate calcifications (approximately 4). In retrospect, in 2018, this was likely present and appears unchanged in morphology and size. No definite correlate on the normal CC projection due to the posterior lateral location, with a definite correlate seen on the exaggerated lateral CC view right breast. This could be a prominent glandular focus versus a fibroadenoma or variant which has begun to calcify. This will be evaluated with ultrasound. ULTRASOUND: CLINICAL INFORMATION: As above COMPARISON: None TECHNIQUE: Targeted sonographic evaluation was performed using a high frequency linear transducer. Attention to the upper outer quadrant of the right breast was given. Selected archived documentation. FINDINGS: RIGHT BREAST: There is a mixture of fatty and fibroglandular tissue. No suspicious mass is present. No cystic abnormalities. Appears to be a prominent lobule of breast tissue with associated specular punctate echoes suggesting calcifications. This measures similarly and is in the appropriate location of the mammographic index finding of concern. No definite suspicious correlate. This is consistent with a lobule of normal breast tissue with benign calcifications. There are no suspicious findings. US/US breast RT limited mamm only IMPRESSION: -There are no findings suspicious for malignancy right breast. -Index mammographic abnormality in the upper outer right breast, posterior one third, correlates on ultrasound with a prominent parenchymal lobule. These are benign findings and no further follow-up recommended. -Recommend the patient resume routine annual screening. OVERALL ASSESSMENT: Mammography: BI-RADS 2 - Benign Findings Ultrasound: BI-RADS 2 - Benign Findings RECOMMENDATION: 1 year F/U This patient's information was entered into a reminder system with a target due date for their next mammogram. Electronically signed by: Cali Aguilar MD 12/30/2023 02:24 PM EDT RP Workstation: [employer] Dictated By: Cali Aguilar MD Signed By: <Electronically signed by Cali Aguilar MD in OV> 12/30/23 1424 DD/ 1400 TD/TT: 12/30/23 1418 Sr. Operations Manager: Procedure Note Donotuseinterpreter, Image - 12/30/[facility] [address] [place] [address] Ultrasound Report Signed Patient: Pita Streeter [facility]#: [id number] : 1975Acct:[id number] Age/Sex: 48 / FADM Date: 12/30/23 Loc: [facility]MAMMO Attending Dr: Yovanny Horne MD Ordering Physician: Yovanny Horne MD Date of Service: 12/30/23 Procedure(s): US breast RT limited mamm only Accession Number(s): [id number] cc: Lisbet Ribeiro MD; Yovanny Horne MD EXAMINATION: MM DIAGNOSTIC DIGITAL BREAST TOMOSYNTHESIS, RIGHT US BREAST LIMITED, RIGHT MAMMOGRAPHY: CLINICAL INFORMATION: Diagnostic; evaluate one view asymmetric density upper outer right breast seen on MLO view only, posterior depth. This has approximately 4 associated punctate calcifications . COMPARISON: Mammography: 12/01/2023, 10/06/2017. TECHNIQUE: Digital breast tomosynthesis is performed in the following views: Full field 3-D exaggerated lateral right CC view, as well as a 3-D spot compression right MLO view. FINDINGS: There are scattered areas of fibroglandular density (ACR BI-RADS breast composition Category b). Examination demonstrates a mildly lobulated oval density in the far upper far outer posterior right breast, with a few associated punctate calcifications (approximately 4). In retrospect, in 2018, this was likely present and appears unchanged in morphology and size. No definite correlate on the normal CC projection due to the posterior lateral location, with a definite correlate seen on the exaggerated lateral CC view right breast. This could be a prominent glandular focus versus a fibroadenoma or variant which has begun to calcify. This will be evaluated with ultrasound. ULTRASOUND: CLINICAL INFORMATION: As above COMPARISON: None TECHNIQUE: Targeted sonographic evaluation was performed using a high frequency linear transducer. Attention to the upper outer quadrant of the right breast was given. Selected archived documentation. FINDINGS: RIGHT BREAST: There is a mixture of fatty and fibroglandular tissue. No suspicious mass is present. No cystic abnormalities. Appears to be a prominent lobule of breast tissue with associated specular punctate echoes suggesting calcifications. This measures similarly and is in the appropriate location of the mammographic index finding of concern. No definite suspicious correlate. This is consistent with a lobule of normal breast tissue with benign calcifications. There are no suspicious findings. US/US breast RT limited mamm only IMPRESSION: -There are no findings suspicious for malignancy right breast. -Index mammographic abnormality in the upper outer right breast, posterior one third, correlates on ultrasound with a prominent parenchymal lobule. These are benign findings and no further follow-up recommended. -Recommend the patient resume routine annual screening. OVERALL ASSESSMENT: Mammography: BI-RADS 2 - Benign Findings Ultrasound: BI-RADS 2 - Benign Findings RECOMMENDATION: 1 year F/U This patient's information was entered into a reminder system with a target due date for their next mammogram. Electronically signed by: Cali Aguilar MD 12/30/2023 02:24 PM EDT Dictated By: Cali Aguilar MD Signed By: <Electronically signed by Cali Aguilar MD in OV> 12/30/23 1424 DD/ 1400 TD/TT: 12/30/23 1418 Sr. Operations Manager: us [facility] External Provider IMG US PROCEDURES Edited Result - Final * ThinPrep Imaging Pap and HPV mRNA E6/E7 with Reflex to HPV 16,18/45 (11/10/2023 10:46 AM EDT) HPV 16 RNA [facility] HPV 18/45 RNA [facility] HPV nRNA E6/E7 Not Detected Not Detected [facility] Comment:Methodology: Transcr iption-Mediated AmplificationThis assay detects E6/E7 viral messenger RNA (mRNA) from 14high-risk HPV types (16,18,31,33,35,39,45,51,52,56,58,59,66,68).Cervical sources are required for HPV testing.If a vaginal source from a patient who has had atotal hysterectomy with removal of cervix wassubmitted, please contact the testing laboratoryfor alternative testing options.For additional information, please refer [email or web address](This link if provided for information/educational purposes only.)THIS TEST WAS PERFORMED AT:[employer] [address] [id number] LR MD SOURCE: SEE NOTE [facility] Comment:Cervix Report Status: [facility] Clinical Information: SEE NOTE [facility] Comment:ROUTINE LMP: SEE NOTE [facility] Comment:NONE GIVEN Prev. PAP: SEE [facility] Comment:NONE GIVEN Prev. BX: SEE NOTE [facility] Comment:NONE GIVEN Statement Of Adequacy: SEE NOTE [facility] Comment:Satisfactory for zoya luation.Endocervical/transformation zone componentpresent. General Categorization: [facility] Interpretation/Result: SEE NOTE [facility] Comment:Cytology Results: Ne gative for intraepitheliallesion or malignancy. Cytology Comment SEE NOTE [facility] Comment:This Pap test has be en evaluated with computerassisted technology. Pharm Spec: SEE NOTE [facility] Comment:SL, CT(ASCP)CT [place] location: [place] [address] Review Pharm Spec: [facility] Pathologist [facility] PAP Infection [facility] See Note SEE NOTE [facility] Comment:EXPLANATORY NOTE:The Pap is a screening test for cervical cancer. It isnot a diagnostic test and is subject to false negativeand false positive results. It is most reliable when asatisfactory sample, regularly obtained, is submittedwith relevant clinical findings and history, and whenthe Pap result is evaluated along with historic andcurrent clinical information. 11/10/2023 10:4 6 AM EDT 11/10/2023 2:08 PM EDT Narrative [facility] - 11/13/2023 11:45 AM EDT SEE SCANNED RESULTS IN EMRWas previous PAP abnormal? UnknownClinical Information: routineCollection Date: 11/10/23igh risk HPV with 16 18 genotyping? YReflex HPV any abnormal diagnosis? YReflex HPV if ASCUS only? NHigh Risk HPV (any diagnosis)? YLMP: 10/06/23Date of previous PAP unknownPerformed by: : cervical us Generic External Data Provider LAB PATHOLOGY ORD ERABLES Final Result [facility] [address] [place] [phone] * HEPATITIS C AB W/REFL TO HCV RNA, QN, PCR (03/28/2020 1:55 PM EST) HEPATITIS C ANTIBODY NON-REACT CAMPBELL NON-REACT CAMPBELL [facility] INDEX 0.01 <1.00 [facility] Comment: HCV antibody was non-reactive. There is no laboratory evidence of HCV infection. In most cases, no further action is required. However, if recent HCV exposure is suspected, a test for HCV RNA (test code 58750) is suggested. For additional information please refer to http://education.BeiBei.MOBEXO/faq/EDT44h3 (This link is being provided for informational/ educational purposes only.) 03/28/2020 1:55 PM EST us Lisbet Ribeiro MD HISTORICAL/NON ORDERABLE LABS Fi nal Result [facility] [address] * HIV 1/2 ANTIGEN/ANTIBODY,FOURTH GENERATION W/RFL (03/28/2020 1:55 PM EST) HIV-1/2 ANTIGEN AND ANTIBODIES, 4TH GENERATION W/ REFLEX NON-REACT CAMPBELL NON-REACT CAMPBELL [facility] Comment: HIV-1 antigen and HIV-1/HIV-2 antibodies were not detected. There is no laboratory evidence of HIV infection. PLEASE NOTE: This information has been disclosed to you from records whose confidentiality may be protected by state law. If your state requires such protection, then the state law prohibits you from making any further disclosure of the information without the specific written consent of the person to whom it pertains, or as otherwise permitted by law. A general authorization for the release of medical or other information is NOT sufficient for this purpose. For additional information please refer to http://education.Eachbaby/faq/QSS042 (This link is being provided for informational/ educational purposes only.) The performance of this assay has not been clinically validated in patients less than 2 years old. 03/28/2020 1:55 PM EST us Lisbet Ribeiro MD LAB BLOOD ORDERABLES Final Resul t Performing Organization Address [facility] Co de Phone Number [facility] [address] from Last 3 Months or Most Recently Relevant to Health Maintenance Insurance [facility] PPO Care Teams Oil Tank Car Cleaner Relationship Specialty Start Date End Date Lisbet Ribeiro MD [address] [place] [id number] PCP - General Family Medicine 01/01/12
--- OUTSIDE RECORDS SUMMARY | 2024-11-03 17:09 | XMS_ITS | Encounter Summary ---
Author Organization [employer] Address [address] [facility] 7t [place] [address] Care Team Providers Care Lusterer Name Role Phone Lisbet Ribeiro MD Primary Care Provider [phone] Reason for Visit * Reason Comments Med Change Request Encounter Details Date Type Department Care Team ([facility] Contact Info) Description 09/09/2024 Refill [facility] MEDICINE [address] [place], [place] [phone] Lisbet Ribeiro MD [address] [place], [place] [phone] Social History Tobacco Use Types Packs/Day Years [...] documented as of this encounter Care Teams Lusterer Relationship Specialty Start Date End Date Lisbet Ribeiro MD [address] [place] [id number] PCP - General Family Medicine 01/01/12 documented as of this encounter
--- OUTSIDE RECORDS SUMMARY | 2024-11-03 17:09 | XMS_ITS | Encounter Summary ---
Author Organization [employer] Address [address] [facility] 7 [place] [address] Care Team Providers Care Power Hair Clipper Name Role Phone Lisbet Ribeiro MD Primary Care Provider [phone] Reason for Visit * Reason Onset Date Comments Appointment Request 07/06/2024 Encounter Details Date Type Department Care Team ([facility] Contact Info) Description 07/06/2024 Telephone [facility] MEDICINE [address] [place], [place] [phone] Lisbet Ribeiro MD [address] [place], [place] [phone] Appointment Request Social History Tobacco Use Types [...] encounter Miscellaneous Notes * Telephone Encounter - Prateek Lowe - 07/06/2024 4:07 PM EDT Tc from pt calling to schedule physical appointment , mortgage loan underwriter advised no soon availability Please return call [phone] documented in this encounter Plan of Treatment Not on file documented as of this encounter Visit Diagnoses Not on filedocumented in this encounter Additional Health Concerns Assessment Noted Time PHQ-9 Depression Total Score: 5 07/02/19 24 10:53 AM EDT documented as of this encounter Care Teams Power Hair Clipper Relationship Specialty Start Date End Date Lisbet Ribeiro MD [address] [place] [phone] PCP - General Family Medicine 01/01/12 documented as of this encounter
--- OUTSIDE RECORDS SUMMARY | 2024-11-03 17:09 | XMS_ITS | Encounter Summary ---
Author Organization [employer] Address [address] [facility] 7t [place] [address] Care Team Providers Care Oracle Agile Plm Consultant Name Role Phone Lisbet Ribeiro MD Primary Care Provider Reason for Visit * Reason Comments Med Refill Encounter Details Date Type Department Care Team ([facility] Contact Info) Description 03/03/2024 Refill [facility] MEDICINE [address] [place], [place] [phone] Nina Shearer CNM [address] [place] [address] Social History Tobacco Use Types Packs/Day Years [...] documented as of this encounter Care Teams Oracle Agile Plm Consultant Relationship Specialty Start Date End Date Lisbet Ribeiro MD [address] [place] [phone] PCP - General Family Medicine 01/01/12 documented as of this encounter
--- OUTSIDE RECORDS SUMMARY | 2024-11-03 17:09 | XMS_ITS | Encounter Summary ---
Author Organization [employer] Address [address] [facility] 7t [place] [address] Care Team Providers Care Field Hockey Coach Name Role Phone Lisbet Ribeiro MD Primary Care Provider [phone] Reason for Visit * Reason Onset Date Comments Med Refill 03/01/2024 Encounter Details Date Type Department Care Team ([facility] st Contact Info) Description 03/01/2024 Telephone [facility] MEDICINE 230 [place], [place] [phone] Lisbet Ribeiro MD [address] [place], [place] [phone] Med Refill Social History Tobacco Use Types Packs/Day Years [...] encounter Miscellaneous Notes * Telephone Encounter - Jacey Mujica LPN - 03/01/2024 4:01 PM EST Script was sent to [facility] #[id number] on 01/06/24 with 2 refills. * Telephone Encounter - Javed Lewis - 03/01/2024 3:49 PM EST TC from pt requesting medication refill. Medications needing refill: escitalopram (Lexapro) 5 MG tablet To be sent to: [facility]/pharmacy #[id number] documented in this encounter Plan of Treatment Not on file documented as of this encounter Visit Diagnoses Not on filedocumented in this encounter Additional Health Concerns Assessment Noted Time PHQ-9 Depression Total Score: 5 07/02/19 24 10:53 AM EDT documented as of this encounter Care Teams Field Hockey Coach Relationship Specialty Start Date End Date Lisbet Ribeiro MD [address] [place] [phone] PCP - General Family Medicine 01/01/12 documented as of this encounter
[2024-11-03 17:56] LABS: Reflex LDLD? No
== END 2024-11-03 14:56 | disposition home or self-care (01) ==
LOC: HO.HHCL 14:55
PROVIDERS: PCP Family Medicine; Visit Provider Family Medicine
DX: Z13.220 Encounter for screening for lipoid disorders (principal); Z13.1 Encounter for screening for diabetes mellitus; Z13.6 Encounter for screening for cardiovascular disorders; E55.9 Vitamin D deficiency, unspecified; M25.562 Pain in left knee
CPT/HCPCS: 36415; 73560; 80048; 80061; 82306; 83036

== ENCOUNTER → 2024-11-03 15:11 | Outpatient (BNV) | payer BC, SELFPAY | PROVIDERS: PCP Family Medicine; Visit Provider Radiology Diagnostic Radiology | DX: M25.562 Pain in left knee (principal) | CPT/HCPCS: 73560 ==

== ENCOUNTER → 2024-12-06 10:00 | Outpatient (BNV) | payer BC, SELFPAY | PROVIDERS: PCP Family Medicine; Visit Provider Internal Medicine | DX: Z12.31 Encounter for screening mammogram for malignant neoplasm of breast (principal) | CPT/HCPCS: 77063; 77067 ==

== ENCOUNTER 2024-12-06 10:18 | Outpatient (REF) | payer BC, SELFPAY ==
--- OUTSIDE RECORDS SUMMARY | 2024-12-06 12:00 | XMS_ITS | Encounter Summary ---
Author Organization [employer] Address [address] [place] [address] 7 [place] [address] Care Team Providers Care Biofuels Production Associate Name Role Phone Lisbet Ribeiro MD Primary Care Provider Reason for Visit * Reason Comments Med Change Request Encounter Details Date Type Department Care Team ([facility] Contact Info) Description 12/04/2024 Refill [facility] MEDICINE 230 [place], [place] [phone] Yumiko Avelar MD 230 [place] [address] Social History Tobacco Use Types Packs/Day Years [...] as of this encounter Plan of Treatment Upcoming Encounters Date Type Department Care Team (Late st Contact Info) Description 12/21/2024 10:45 AM EDT Office Visit [facility] MEDICINE [address] [place] [phone] Lisbet Ribeiro MD [address] [place] [phone] documented as of this encounter Visit Diagnoses Not on filedocumented in this encounter Additional Health Concerns Assessment Noted Time PHQ-9 Depression Total Score: 5 07/02/19 24 10:53 AM EDT documented as of this encounter Care Teams Biofuels Production Associate Relationship Specialty Start Date End Date Lisbet Ribeiro MD [address] [place] [phone] PCP - General Family Medicine 01/01/12 documented as of this encounter
--- OUTSIDE RECORDS SUMMARY | 2024-12-06 12:00 | XMS_ITS | Encounter Summary ---
Author Organization [employer] Address [address] [facility] 7t [place] [address] Care Team Providers Care Oyster Culler Name Role Phone Lisbet Ribeiro MD Primary Care Provider [phone] Encounter Details Date Type Department Care Team ([facility] st Contact Info) Description 11/04/2024 Results Follow-Up [facility] MEDICINE 230 [place], [place] [phone] Lisbet Ribeiro MD 230 [place], [place] [phone] XR Knee 1-2 Views Left Social History Tobacco Use Types Packs/Day Years [...] Description 12/21/2024 10:45 AM EDT Office Visit [facility] MEDICINE [address] [place] [address] Lisbet Ribeiro MD [address] [place] [address] documented as of this encounter Visit Diagnoses Not on filedocumented in this encounter Additional Health Concerns Assessment Noted Time PHQ-9 Depression Total Score: 5 07/02/19 24 10:53 AM EDT documented as of this encounter Care Teams Oyster Culler Relationship Specialty Start Date End Date Lisbet Ribeiro MD [address] [place] [phone] PCP - General Family Medicine 01/01/12 documented as of this encounter
--- OUTSIDE RECORDS SUMMARY | 2024-12-06 12:00 | XMS_ITS | Encounter Summary ---
Author Organization [employer] Address [address] [facility] 7t [place] [address] Care Team Providers Care Battery Hand Name Role Phone Lisbet Ribeiro MD Primary Care Provider [phone] Reason for Visit * Reason Comments Med Refill Encounter Details Date Type Department Care Team ([facility] Contact Info) Description 03/03/2024 Refill [facility] MEDICINE 230 [place], [place] [phone] Nina Shearer CNM [address] [place] [address] Social History Tobacco Use Types Packs/Day Years [...] Description 12/21/2024 10:45 AM EDT Office Visit [facility] MEDICINE [address] [place] [phone] Lisbet Ribeiro MD [address] [place] [phone] documented as of this encounter Visit Diagnoses Not on filedocumented in this encounter Additional Health Concerns Assessment Noted Time PHQ-9 Depression Total Score: 5 07/02/19 24 10:53 AM EDT documented as of this encounter Care Teams Battery Hand Relationship Specialty Start Date End Date Lisbet Ribeiro MD [address] [place] [phone] PCP - General Family Medicine 01/01/12 documented as of this encounter
--- OUTSIDE RECORDS SUMMARY | 2024-12-06 12:00 | XMS_ITS | Clinical Summary ---
Author Organization [address] Address [address] [place] [phone] Phone Care Team Providers Care Climate Change Analyst Name Role Phone Unavailable Primary Care Provider [...] Smear 1998 Depression Screening 03/03/2024 COVID-19 Vaccine (1 - 2023-2 5 season) 2024 Influenza Vaccine (#1) 2024 RSV Immunization Adult Patie nts (1 - 1-dose 75+ series) 2052 HIB Vaccines Aged Out No longer eligi [...]
--- OUTSIDE RECORDS SUMMARY | 2024-12-06 12:00 | XMS_ITS | Clinical Summary ---
Author Organization [employer] Address [address] [facility] 7t [place] [address] Care Team Providers Care Conversion Worker Name Role Phone Lisbet Ribeiro MD Primary Care Provider [phone] Allergies Active Allergy Reactions Criticality Noted Date Comments Oxycodone 08/28/2011 Medications * This document contains information received from the source organization and may not represent a complete record from that organization. chlorhexidine (Peridex) 0.12 % solution RINSE MOUTH WITH 15ML (1 CAPFUL) FOR 30 SECONDS IN MORNING AND EVENING AFTER BRUSHING, THEN SPIT 08/10/19 22 Active fluticasone (Flonase) 50 MCG/ACT nasal spray Administer 1 spray into affected nostril(s) at bed time. 06/28/19 21 Active loratadine (Claritin) 10 MG tablet Take 1 tablet by mouth at bed time. 06/28/19 21 Active nicotine polacrilex (Commit) 4 MG lozenge Take 1 tablet by mouth every 2 (two) hours. 02/29/20 21 Active ibuprofen 600 MG tablet One tablet every 8 hours with food x 7 days 21 tablet 1 06/09/19 24 Active fluticasone furoate (Arnuity Ellipta) 100 MCG/ACT inhaler INHALE 1 PUFF BY MOUTH EVERY DAY RINSE MOUTH AFTER USING. 30 each 2 07/14/19 24 Active Ventolin HFA 108 (90 Base) MCG/ACT inhaler INHALE 2 PUFFS EVERY 6 HOURS NEEDED FOR WHEEZING 18 g 1 07/14/19 24 Active cholecalcifero l (Vitamin D-3) 50 MCG (2000 UT) capsule Take 1 capsule (50 mcg) by mouth Once per day. 90 capsule 3 01/11/20 24 Active escitalopram (Lexapro) 5 MG tablet TAKE 2 TABLETS BY MOUTH EVERY DAY 60 tablet 1 11/27/19 25 Active escitalopram (Lexapro) 5 MG tablet Take 2 tablets by mouth daily 60 tablet 3 06/03/19 25 025 Discontinued Active Problems Problem Noted Date Diagnosed Date [...] (01/06/2024 12:11 PM EST): - [facility]UB [facility] - Endometrial biopsy on 11/14/23. 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 - s/p TLH/BSO on 12/19/[address] Anglin - patient has appointment today with Dr. Anglin to discuss further management plan Assessment & Plan (11/19/2023 6:21 AM EDT): - AUB - [facility] - Endometrial biopsy on 11/14/23. Pathology [...] 12:13 PM EST): - previously connected with [facility]. Dr. Silva - previously taking medications, but she is no longer taking it or seeing [facility] provider - patient agreed to restart counseling. Will refer to S. - patient is also interested in medication. Will start Lexapro Assessment & Plan (07/06/2023 6:26 AM EDT): - previously connected with [facility]. Dr. Silva - previously taking medications, but she is no longer taking it or seeing [facility] provider - continue taking care of behavioral health Assessment & Plan (04/01/2022 12:18 PM EST): - previously connected with [facility]. Dr. Silva - previously taking medications, but she is no longer taking it or seeing [facility] provider - continue taking care of behavioral [...] showed endometrial polyp - upcoming appointment with DATABASE COORDINATOR Tinea pedis of both feet 04/01/202207/2023 Assessment & Plan (04/01/2022 12:14 PM EST): - aerate between toes - terbinafine topical Underweight 12/14/2012 01/11/2024 Encounters Date Type Department Care Team Description 12/04/2024 Refill [facility] [address] [place] [address] Pita Avelar MD 11/26/2024 Refill [facility] [address] [place] [address] Lisbet Ribeiro MD 11/08/2024 Telephone [facility] [address] [place] [address] Lisbet Ribeiro MD Appointment Request 11/04/2024 Results Follow-Up [facility] [address] [place] [address] Lisbet Ribeiro MD XR Knee 1-2 Views Left 09/09/2024 Refill [facility] [address] [place] [address] Lisbet Ribeiro MD 09/08/2024 Telephone [facility] [address] [place], [place] [phone] Jazmín Greco MA chart prep from Last 3 Months Immunizations Immunization Administration [...] 01/06/2024 11:12 AM EST Plan of Treatment Upcoming Encounters Date Type Department Care Team (Late st Contact Info) Description 12/21/2024 10:45 AM EDT Office Visit [facility] [address] [place], [place] [phone] Lisbet Ribeiro MD [address] [place], [place] [phone] Health Maintenance Due Date Last Done Comments [...] 01/05/2025 01/06/2024 Family Planning (PISQ) 01/10/2025 01/11/2024 Mammogram 12/29/2025 12/30/2023, 11/03, 10/07/2017 Zoster Vaccines (1 of 2) 06/24/2027 Lipid Panel 11/03/2029 11/03/2024, 03/04, 02/03/2020 DTaP/Tdap/Td Vaccines (7 - Td or Tdap) [...] Recently Relevant to Health Maintenance Results * Vitamin D, 25-Hydroxy, Total, Immunoassay (11/03/2024 2:59 PM EDT) Vitamin D 25-OH Total 36.2 >30 ng/mL [facility] Comment: Health Based Reference Values*< 20 ng/mL Vvojgbdlz08-41 ng/mL Insufficient> 30 ng/mL Sufficient*Brandy SANTAMARIA. N Engl J Med. 2007;357:266-280There is no well-established upper level of normal vitamin Dlevels. Some laboratories use 50 ng/mL as an upper limit ofnormal. However, toxicity is patient-dependent and may occurat any level. Careful correlation with the patient'spresentation is necessary and, if there is concern forvitamin D toxicity, treatment should be consideredirrespective of the serum level.Care must be taken in interpreting Vitamin D results fromdifferent laboratories and methodologies. Published datademonstrated that results from patients undergoinghemodialysis may show a negative bias when tested withvarious automated 25-OH vitamin D assays when compared toLC-MS/MS.When testing samples from patients whose predominant form ofVitamin D is Vitamin D2, such as patients receiving VitaminD2 supplementation, results that are subtherapeutic shouldbe confirmed with another method such as LC-MS/MS. Blood Venous blood specimen / Unknown 11/03/2024 2:59 PM EDT 11/03/2024 4:17 PM EDT us Lisbet Ribeiro MD LAB BLOOD ORDERABLES Final Resul t [facility] [address] [place] [address] [phone] * (ABNORMAL) Lipid Panel with Reflex to Direct LDL (11/03/2024 2:59 PM EDT) Triglycerides 348(H) <150 mg/dL [facility] Comment:Slight Lipemia.Dee Dee able Triglyceride: less than 150 mg/dLBorderline High Triglyceride 150-199 mg/dLHigh Triglyceride: 200-499 mg/dLVery High Triglyceride: greater than or equal to 5OO mg/dL Cholesterol 184 <200 mg/dL [facility] Comment:Desirable Cholestero l: less than 200 mg/dLBorderline High Cholesterol: 200-239 mg/dLHigh Cholesterol: greater than 239 mg/dL LDL Cholesterol Calculated 61 <100 mg/dL [facility] Comment:Desirable LDL: less than 100 mg/dLNear Optimal/Above Optimal LDL: 110- 129 mg/dLBorderline High LDL: 130-159 mg/dLHigh LDL: 160-189 mg/dLVery High LDL: greater than or equal to 190 mg/dL HDL Cholesterol 54 >40 mg/dL [facility] Comment:Desirable HDL: great er than 40 mg/dL Note: This HDL assay may give artificially low results in patients with liver disease. Blood 11/03/2024 2:59 PM EDT 11/03/2024 4:17 PM EDT Lisbet Ribeiro MD LAB BLOOD ORDERABLES Final Resul t Performing Organization Address [facility] [place] [facility]/ZIP Co de Phone Number [facility] [address] [place] [address] [phone] * Hemoglobin A1c (11/03/2024 2:59 PM EDT) Hemoglobin A1c 5.4 <6.0 % [facility] Comment:Hemoglobin A1C Refer ence Range Adults: 4.8 - 6.0 % Non diabetic: < 6.0 % Goal: < 7.0 %Additional Action Suggested: > 8.0 %Note: Hemoglobin A1c results are invalid for patients with abnormal amounts of HbF. Blood transfusions may impact the HbA1c concentration in the patient sample. Estimated Average Glucose 108 mg/dL [facility] Comment:eAG = Estimated ave rage glucose which is %A1C expressed asaverage glucose, using the formula of the G9T-QrssmjzIarzqrr Glucose study (ADAG), Diabetes Care, Vol.31,#8,2007 Blood Venous blood specimen / Unknown 11/03/2024 2:59 PM EDT 11/03/2024 4:17 PM EDT us Lisbet Ribeiro MD LAB BLOOD ORDERABLES Final Resul t Performing Organization Address City/[facility]/ZIP Co de Phone Number [facility] [address] [place] [phone] * (ABNORMAL) Basic Metabolic Panel (11/03/2024 2:59 PM EDT) Sodium 139 135 - 145 mmol/L [facility] Potassium 3.9 3.3 - 5.1 mmol/L [facility] Chloride 107 96 - 108 mmol/L [facility] Carbon Dioxide 25 22 - 29 mmol/L [facility] Anion Gap 11(L) 12 - 20 [facility] Urea Nitrogen (BUN) 15 9 - 16 mg/dL [facility] Creatinine, Serum 0.88 0.5 - 1.4 mg/dL [facility] Estimated Glomerular Filt Rate >60 [facility] Comment:Chronic Kidney Disea se: Estimated GFR < 60 mL/min/1.26t4Rgghfh Kidney Disease: Estimated GFR < 15 mL/min/1.73m2 Glucose 89 60 - 115 mg/dL [facility] Calcium 9.1 8.4 - 10.2 mg/dL [facility] Blood Venous blood specimen / Unknown 11/03/2024 2:59 PM EDT 11/03/2024 4:17 PM EDT us Lisbet Ribeiro MD LAB BLOOD ORDERABLES Final Resul t [facility] [address] [place] [phone] * XR Knee 1-2 Views Left (11/03/2024 2:29 PM EDT) Anatomical Region Laterality Modality Lower Extremities, Knee Left Radiogra phic Imaging 11/03/2024 2:29 PM EDT Narrative 11/03/2024 3:29 PM EDT [address] [address] XRay Report Signed Patient: Pita Streeter MR#: [id number] : 1975 Acct:[id number] Age/Sex: 49 / F ADM Date: 11/03/24 Loc: HO.HH Attending Dr: Lisbet Ribeiro MD Ordering Physician: Lisbet Ribeiro MD Date of Service: 11/03/24 Procedure(s): XR knee LT 2V Accession Number(s): [id number] cc: Lisbet Ribeiro MD Reason for Exam: [...] 11/03/24 1527 DD/ 1429 TD/TT: 11/03/24 1430 Patient Admitting Representative: Procedure Note Donotuseinterpreter, Image - 11/03/[address] [address] XRay Report Signed Patient: Pita Streeter MMR#: [id number] : 1975Acct:[id number] Age/Sex: 49 / FADM Date: 11/03/24 Loc: HHCL Attending Dr: Lisbet Ribeiro MD Ordering Physician: Lisbet Ribeiro MD Date of Service: 11/03/24 Procedure(s): XR knee LT 2V Accession Number(s): [id number] cc: Lisbet Ribeiro MD Reason for Exam: [...] 11/03/24 1527 DD/ 1429 TD/TT: 11/03/24 1430 Patient Admitting Representative: us Lisbet Ribeiro MD IMG XR PROCEDURES Final Result * BI US Breast Limited Right (12/30/2023 2:00 PM EDT) Anatomical Region Laterality Modality Breast Right Ultrasound 12/30/2023 2:00 PM EDT Narrative 12/30/2023 2:27 PM EDT [facility] [address] [place] [address] Ultrasound Report Signed Patient: Pita Streeter MR#: [id number] : 1975 Acct:[id number] Age/Sex: 48 / F ADM Date: 12/30/23 Loc: CHELITA Attending Dr: Yovanny Horne MD Ordering Physician: Yovanny Horne MD Date of Service: 12/30/23 Procedure(s): US breast RT limited mamm only Accession Number(s): [id number] cc: Lisbet Ribeiro MD; Yovanny Horne MD [...] 12/30/23 1424 DD/ 1400 TD/TT: 12/30/23 1418 Patient Admitting Representative: Procedure Note Donotuseinterpreter, Image - 12/30/2023 [facility] [address] [place], [place] [address] Ultrasound Report Signed Patient: Pita Streeter MMR#: [id number] : 1975Acct:[id number] Age/Sex: 48 / FADM Date: 12/30/23 Loc: HO.MAMMO Attending Dr: Yovanny Horne MD Ordering Physician: Yovanny Horne MD Date of Service: 12/30/23 Procedure(s): US breast RT limited mamm only Accession Number(s): [id number] cc: Lisbet Ribeiro MD; Yovanny Horne MD [...] 12/30/23 1424 DD/ 1400 TD/TT: 12/30/23 1418 Patient Admitting Representative: us [facility] External Provider IMG US PROCEDURES Edited Result - Final * ThinPrep Imaging Pap and HPV mRNA E6/E7 with Reflex to HPV 16,18/45 (11/10/2023 10:46 AM EDT) HPV 16 RNA TNP [facility] HPV 18/45 RNA [facility] HPV nRNA E6/E7 Not Detected Not Detected [facility] Comment:Methodology: Transcr iption-Mediated AmplificationThis assay detects E6/E7 viral messenger RNA (mRNA) from 14high-risk HPV types (16,18,31,33,35,39,45,51,52,56,58,59,66,68).Cervical sources are required for HPV testing.If a vaginal source from a patient who has had atotal hysterectomy with removal of cervix wassubmitted, please contact the testing laboratoryfor alternative testing options.For additional information, please refer tohttp://education.[employer]/faq/BBR667f6(This link if provided for information/educational purposes only.)THIS TEST WAS PERFORMED AT:[employer] [address] [id number] LR MD SOURCE: SEE NOTE [facility] Comment:Cervix Report Status: [facility] Clinical Information: SEE NOTE [facility] Comment:ROUTINE LMP: SEE NOTE [facility] Comment:NONE GIVEN Prev. PAP: SEE NOTE [facility] Comment:NONE GIVEN Prev. BX: SEE NOTE [facility] Comment:NONE GIVEN Statement Of Adequacy: SEE NOTE [facility] Comment:Satisfactory for zoya luation.Endocervical/transformation zone componentpresent. General Categorization: [facility] Interpretation/Result: SEE NOTE [facility] Comment:Cytology Results: Ne gative for intraepitheliallesion or malignancy. Cytology Comment SEE NOTE [facility] Comment:This Pap test has be en evaluated with computerassisted technology. Electronic Operator: SEE NOTE [facility] Comment:SL, CT(ASCP)CT [place] location: [address] [address] Review Electronic Operator: [facility] Pathologist [facility] PAP Infection [facility] See Note SEE [facility] Comment:EXPLANATORY NOTE:The Pap is a screening test for cervical cancer. It isnot a diagnostic test and is subject to false negativeand false positive results. It is most reliable when asatisfactory sample, regularly obtained, is submittedwith relevant clinical findings and history, and whenthe Pap result is evaluated along with historic andcurrent clinical information. 11/10/2023 10:4 6 AM EDT 11/10/2023 2:08 PM EDT Narrative [facility] - 11/13/2023 11:45 AM EDT SEE SCANNED RESULTS IN EMRWas previous PAP abnormal? UnknownClinical Information: routineCollection Date: 11/10/23igh risk HPV with 16 18 genotyping? YReflex HPV any abnormal diagnosis? YReflex HPV if ASCUS only? NHigh Risk HPV (any diagnosis)? YLMP: 10/06/23Date of previous PAP unknownPerformed by: : cervical us Generic External Data Provider LAB PATHOLOGY ORD ERABLES Final Result Performing Organization Address City/[facility] Co de Phone Number [facility] [address] [place] [address] [phone] * HEPATITIS C AB W/REFL TO HCV RNA, QN, PCR (03/28/2020 1:55 PM EST) HEPATITIS C ANTIBODY NON-REACT [place] NON-REACT [facility] INDEX 0.01 <1.00 [facility] Comment: HCV antibody was non-reactive. There is no laboratory evidence of HCV infection. In most cases, no further action is required. However, if recent HCV exposure is suspected, a test for HCV RNA (test code 73069) is suggested. For additional information please refer to http://education.[employer]/faq/FAS59f9 (This link is being provided for informational/ educational purposes only.) 03/28/2020 1:55 PM EST Lisbet Ribeiro MD HISTORICAL/NON ORDERABLE LABS Fi nal Result Performing Organization Address City/[facility] Co de Phone Number [facility] [address] * HIV 1/2 ANTIGEN/ANTIBODY,FOURTH GENERATION W/RFL (03/28/2020 1:55 PM EST) HIV-1/2 ANTIGEN AND ANTIBODIES, 4TH GENERATION W/ REFLEX NON-REACT [facility] NON-REACT [facility] Comment: HIV-1 antigen and HIV-1/HIV-2 [...] purpose. For additional information please refer to http://[employer]/faq/CTN820 (This link is being provided for informational/ educational purposes only.) The performance of this assay has not been clinically validated in patients less than 2 years old. 03/28/2020 1:55 PM EST us Lisbet Ribeiro MD LAB BLOOD ORDERABLES Final Resul t Performing Organization Address City/State/[facility] Co de Phone Number [facility] [address] from Last 3 Months or Most Recently Relevant to Health Maintenance Insurance [facility] [place] [id number] Care Teams Conversion Worker Relationship Specialty Start Date End Date Lisbet Ribeiro MD [address] [place] [address] PCP - General Family Medicine 01/01/12
--- OUTSIDE RECORDS SUMMARY | 2024-12-06 12:00 | XMS_ITS | Encounter Summary ---
Author Organization [employer] Address [address] [place] [address] 7 [place] [address] Care Team Providers Care Newsperson Name Role Phone Lisbet Ribeiro MD Primary Care Provider [phone] Encounter Details Date Type Department Care Team (Late st Contact Info) Description 02/28/2022 Abstract [facility] [address] [place] [address] Lisbet Ribeiro MD [address] [place], [place] [phone] Social History Tobacco Use Types Packs/Day Years [...] Description 12/21/2024 10:45 AM EDT Office Visit [facility] [address] [place] [address] Lisbet Ribeiro MD [address] [place], [place] [phone] documented as of this encounter Visit Diagnoses Not on filedocumented in this encounter Care Teams Newsperson Relationship Specialty Start Date End Date Lisbet Ribeiro MD [address] [place] [address] [phone] PCP - General Family Medicine 01/01/12 documented as of this encounter
--- OUTSIDE RECORDS SUMMARY | 2024-12-06 12:00 | XMS_ITS | Encounter Summary ---
Author Organization [employer] Address [address] [facility] 7t [place] [address] Care Team Providers Care Neurosurgical Nurse Practitioner Name Role Phone Lisbet Ribeiro MD Primary Care Provider [phone] Reason for Visit * Reason Onset Date Comments Med Refill 03/01/2024 Encounter Details Date Type Department Care Team ([facility] st Contact Info) Description 03/01/2024 Telephone [facility] [address] [place], [place] [phone] Lisbet Ribeiro MD [address] [place], [place] [phone] Med Refill Social History Tobacco Use Types [...] 4:01 PM EST Script was sent to [facility] #[id number] on 01/06/24 with 2 refills. * Telephone Encounter - Javed Lewis - 03/01/2024 3:49 PM EST TC from pt requesting medication refill. Medications needing refill: escitalopram (Lexapro) 5 MG tablet To be sent to: [facility]/pharmacy #[id number] documented in this encounter Plan of Treatment Upcoming Encounters Date Type Department Care Team (Late st Contact Info) Description 12/21/2024 10:45 AM EDT Office Visit [facility] [address] [place] [address] Lisbet Ribeiro MD [address] [place] [address] documented as of this encounter Visit Diagnoses Not on filedocumented in this encounter Additional Health Concerns Assessment Noted Time PHQ-9 Depression Total Score: 5 07/02/19 10:53 AM EDT documented as of this encounter Care Teams Neurosurgical Nurse Practitioner Relationship Specialty Start Date End Date Lisbet Ribeiro MD [address] [place] [address] PCP - General Family Medicine 01/01/12 documented as of this encounter
--- OUTSIDE RECORDS SUMMARY | 2024-12-06 12:00 | XMS_ITS | Encounter Summary ---
Author Organization [employer] Address [address] [facility] 7t [place] [address] Care Team Providers Care Cat Skinner Name Role Phone Lisbet Ribeiro MD Primary Care Provider [phone] Reason for Visit * Reason Comments Med Change Request Encounter Details Date Type Department Care Team ([facility] Contact Info) Description 09/09/2024 Refill [facility] [address] [place], [place] [phone] Lisbet Ribeiro MD [address] [place], [place] [phone] Social History Tobacco Use Types Packs/Day Years [...] Description 12/21/2024 10:45 AM EDT Office Visit [facility] [address] [place] [address] Lisbet Ribeiro MD [address] [place] [address] documented as of this encounter Visit Diagnoses Not on filedocumented in this encounter Additional Health Concerns Assessment Noted Time PHQ-9 Depression Total Score: 5 07/02/19 24 10:53 AM EDT documented as of this encounter Care Teams Cat Skinner Relationship Specialty Start Date End Date Lisbet Ribeiro MD [address] [place] [phone] PCP - General Family Medicine 01/01/12 documented as of this encounter
--- OUTSIDE RECORDS SUMMARY | 2024-12-06 12:00 | XMS_ITS | Encounter Summary ---
Author Organization [employer] Address [address] [facility] 7t [place] [address] Care Team Providers Care Php Software Engineer Name Role Phone Lisbet Ribeiro MD Primary Care Provider [phone] Reason for Visit * Reason Comments Med Refill Encounter Details Date Type Department Care Team ([facility] Contact Info) Description 08/08/2023 Refill [facility] [address] [place], [place] [phone] Nina Shearer CNM [address] [place] [address] Social History Tobacco Use Types Packs/Day Years [...] 1:19 PM EDT TC placed to pt [phone] in regards to below. Pt informed she [...] 10:45 AM EDT Office Visit [facility] [address] [place] [address] Lisbet Ribeiro MD [address] [place] [address] documented as of this encounter Visit Diagnoses Not on filedocumented in this encounter Additional Health Concerns Assessment Noted Time PHQ-9 Depression Total Score: 5 07/02/19 10:53 AM EDT documented as of this encounter Care Teams Php Software Engineer Relationship Specialty Start Date End Date Lisbet Ribeiro MD [address] [place] [phone] PCP - General Family Medicine 01/01/12 documented as of this encounter
--- OUTSIDE RECORDS SUMMARY | 2024-12-06 12:00 | XMS_ITS | Encounter Summary ---
Author Organization [employer] Address [address] [facility] 7t [place] [address] Care Team Providers Care Metal Tank Erector Name Role Phone Lisbet Ribeiro MD Primary Care Provider [phone] Reason for Visit * Reason Onset Date Comments Appointment Request 07/06/2024 Encounter Details Date Type Department Care Team ([facility] Contact Info) Description 07/06/2024 Telephone [facility] [address] [place], [place] [phone] Lisbet Ribeiro MD [address] [place], [place] [phone] Appointment Request Social History Tobacco Use Types [...] pt calling to schedule physical appointment , clinical writer advised no soon availability Please return call [phone] documented in this encounter Plan of Treatment Upcoming Encounters Date Type Department Care Team (Late st Contact Info) Description 12/21/2024 10:45 AM EDT Office Visit [facility] MED[facility] [address] [place], [place] [phone] Lisbet Ribeiro MD [address] [place] [address] documented as of this encounter Visit Diagnoses Not on filedocumented in this encounter Additional Health Concerns Assessment Noted Time PHQ-9 Depression Total Score: 5 07/02/19 24 10:53 AM EDT documented as of this encounter Care Teams Metal Tank Erector Relationship Specialty Start Date End Date Lisbet Ribeiro MD [address] [place], [place] [phone] PCP - General Family Medicine 01/01/12 documented as of this encounter
== END 2024-12-06 10:19 | disposition home or self-care (01) ==
LOC: HO.MAMMO 10:18
PROVIDERS: PCP Family Medicine; Visit Provider Family Medicine
DX: Z12.31 Encounter for screening mammogram for malignant neoplasm of breast (principal)
CPT/HCPCS: 77063; 77067

== ENCOUNTER 2025-01-05 10:01 | Outpatient (REF) | payer BC, SELFPAY ==
[2025-01-05 11:08] LABS: MANUAL DIFF FLAG NO
[2025-01-05 11:24] LABS: Hematocrit 42.5 % (37.0-47.0); Hemoglobin 14.1 g/dl (12.0-16.0); Imm Gran Abs Auto 0.03 X10*3/uL (0.00-0.03); Imm Gran Pct Auto 0.4 % (0.0-0.4); Lymphocytes Absolute Auto 2.4 X10*3/uL (1.2-4.9); Mean Corpuscular HGB Conc 33.2 g/dl (31.0-35.0); Mean Corpuscular Hemoglobin 32.0 pg (27.0-33.0); Mean Corpuscular Volume 96.4 fL (80.0-98.0); NRBC Abs Auto 0.000 X10*3/uL (0.0-0.012); NRBC Pct Auto 0.0 /100WBC (0.0-0.2); Platelet Count 311 X10*3/uL (160-400); Red Blood Count 4.41 X10*6/uL (4.20-5.50); Reticulocytes Absolute 0.078 X10*6/uL (0.026-0.095); White Blood Count 7.9 X10*3/uL (4.8-10.8)
--- OUTSIDE RECORDS SUMMARY | 2025-01-05 11:32 | XMS_ITS | Encounter Summary ---
Author Organization [employer] Address [address] [facility] 7[address] [place] [address] Care Team Providers Care Welfare Centre Manager Name Role Phone Lisbet Ribeiro MD Primary Care Provider [phone] Reason for Visit * Reason Comments Med Refill Encounter Details Date Type Department Care Team ([facility] Contact Info) Description 08/08/2023 Refill [facility] [address] [place], [place] [phone] Nina Shearer CNM [address] [place] [address] Social History Tobacco Use Types Packs/Day Years [...] 1:19 PM EDT TC placed to pt [phone] in regards to below. Pt informed she [...] documented as of this encounter Care Teams Welfare Centre Manager Relationship Specialty Start Date End Date Lisbet Ribeiro MD [address] [place] [address] PCP - General Family Medicine 01/01/12 documented as of this encounter
--- OUTSIDE RECORDS SUMMARY | 2025-01-05 11:32 | XMS_ITS | Encounter Summary ---
Author Organization [employer] Address [address] [facility] 7 [place] [address] Care Team Providers Care Living Coach Name Role Phone Lisbet Ribeiro MD Primary Care Provider Reason for Visit * Reason Onset Date Comments Appointment Request 07/06/2024 Encounter Details Date Type Department Care Team ([facility] Contact Info) Description 07/06/2024 Telephone [facility] [address] [place], [place] [phone] Lisbet Ribeiro MD [address] [place], [place] [phone] Appointment Request Social History Tobacco Use Types [...] pt calling to schedule physical appointment , information writer advised no soon availability Please return call [phone] documented in this encounter Plan of Treatment Not on file documented as of this encounter Visit Diagnoses Not on filedocumented in this encounter Additional Health Concerns Assessment Noted Time PHQ-9 Depression Total Score: 5 07/02/19 24 10:53 AM EDT documented as of this encounter Care Teams Living Coach Relationship Specialty Start Date End Date Lisbet Ribeiro MD [address] [place] [id number] PCP - General Family Medicine 01/01/12 documented as of this encounter
--- OUTSIDE RECORDS SUMMARY | 2025-01-05 11:32 | XMS_ITS | Encounter Summary ---
Author Organization [employer] Address [address] [place] [address] [address] [place] [address] Care Team Providers Care Boiler/Chiller Operator Name Role Phone Lisbet Ribeiro MD Primary Care Provider [phone] Encounter Details Date Type Department Care Team (Late st Contact Info) Description 02/28/2022 Abstract [facility] [address] [place], [place] [phone] Lisbet Ribeiro MD [address] [place], [place] [phone] Social History Tobacco Use Types Packs/Day Years [...] on filedocumented in this encounter Care Teams Boiler/Chiller Operator Relationship Specialty Start Date End Date Lisbet Ribeiro MD [address] [place], [place] [phone] PCP - General Family Medicine 01/01/12 documented as of this encounter
--- OUTSIDE RECORDS SUMMARY | 2025-01-05 11:32 | XMS_ITS | Encounter Summary ---
Author Organization [employer] Address [address] [facility] 7 [place] [address] Care Team Providers Care Switch Cleaner Name Role Phone Lisbet Ribeiro MD Primary Care Provider [phone] Reason for Visit * Reason Onset Date Comments Med Refill 03/01/2024 Encounter Details Date Type Department Care Team ([facility] st Contact Info) Description 03/01/2024 Telephone [facility] [address] [place], [place] [phone] Lisbet Ribeiro MD [address] [place], [place] [phone] Med Refill Social History Tobacco Use Types [...] 4:01 PM EST Script was sent to [facility][id number] on 01/06/24 with 2 refills. * Telephone Encounter - Javed Lewis - 03/01/2024 3:49 PM EST TC from pt requesting medication refill. Medications needing refill: escitalopram (Lexapro) 5 MG tablet To be sent to: [facility]/pharmacy #[id number] documented in this encounter Plan of Treatment Not on file documented as of this encounter Visit Diagnoses Not on filedocumented in this encounter Additional Health Concerns Assessment Noted Time PHQ-9 Depression Total Score: 5 07/02/19 24 10:53 AM EDT documented as of this encounter Care Teams Switch Cleaner Relationship Specialty Start Date End Date Lisbet Ribeiro MD [address] [place] [id number] PCP - General Family Medicine 01/01/12 documented as of this encounter
--- OUTSIDE RECORDS SUMMARY | 2025-01-05 11:32 | XMS_ITS | Encounter Summary ---
Author Organization [employer] Address [address] [facility] 7t [place] [address] Care Team Providers Care Scribing Machine Operator Name Role Phone Lisbet Ribeiro MD Primary Care Provider [phone] Reason for Visit * Reason Comments Med Change Request Encounter Details Date Type Department Care Team ([facility] Contact Info) Description 09/09/2024 Refill [facility] [address] [place], [place] [phone] Lisbet Ribeiro MD [address] [place], [place] [phone] Social History Tobacco Use Types Packs/Day Years [...] documented as of this encounter Care Teams Scribing Machine Operator Relationship Specialty Start Date End Date Lisbet Ribeiro MD [address] [place] [id number] PCP - General Family Medicine 01/01/12 documented as of this encounter"
--- OUTSIDE RECORDS SUMMARY | 2025-01-05 11:32 | XMS_ITS | Clinical Summary ---
Author Organization [employer] Address [address] [facility] [address] [place] [address] Care Team Providers Care Resident Surgeon Name Role Phone Lisbet Ribeiro MD Primary Care Provider [phone] Allergies Active Allergy Reactions Criticality Noted Date Comments Oxycodone 08/28/2011 Medications * This document contains information received from the source organization and may not represent a complete record from that organization. chlorhexidine (Peridex) 0.12 % solution RINSE MOUTH WITH 15ML (1 CAPFUL) FOR 30 SECONDS IN MORNING AND EVENING AFTER BRUSHING, THEN SPIT 08/10/19 22 Active nicotine polacrilex (Commit) 4 MG lozenge Take 1 tablet by mouth every 2 (two) hours. 02/29/20 21 Active ibuprofen 600 MG tablet One tablet every 8 hours with food x 7 days 21 tablet 1 06/09/19 24 Active cholecalcifero l (Vitamin D-3) 50 MCG (2000 UT) capsule Take 1 capsule (50 mcg) by mouth Once per day. 90 capsule 3 01/11/20 24 Active escitalopram (Lexapro) 5 MG tablet TAKE 2 TABLETS BY MOUTH EVERY DAY 180 tablet 12/07/19 25 Active loratadine (Claritin) 10 MG tablet Take 1 tablet (10 mg) by mouth Once per day. 90 tablet 3 12/22/19 25 Active albuterol (Ventolin HFA) 108 (90 Base) MCG/ACT inhaler Inhale 2 puffs every 6 (six) hours if needed for wheezing. 18 g 1 12/22/19 25 Active fluticasone furoate (Arnuity Ellipta) 100 MCG/ACT inhaler INHALE 1 PUFF BY MOUTH EVERY DAY RINSE MOUTH AFTER USING. 30 each 2 10/21/20 25 Active fluticasone (Flonase) 50 MCG/ACT nasal spray Administer 1 spray into each nostril Once per day. 16 g 3 12/22/19 25 Active fluticasone (Flonase) 50 MCG/ACT nasal spray Administer 1 spray into affected nostril(s) at bed time. 06/28/19 025 Discontinued(Re order (will not trigger notification to Pharmacy)) loratadine (Claritin) 10 MG tablet Take 1 tablet by mouth at bed time. 06/28/19 21 025 Discontinued(Re order (will not trigger notification to Pharmacy)) fluticasone furoate (Arnuity Ellipta) 100 MCG/ACT inhaler INHALE 1 PUFF BY MOUTH EVERY DAY RINSE MOUTH AFTER USING. 30 each 2 07/14/19 24 025 Discontinued(Re order (will not trigger notification to Pharmacy)) Ventolin HFA 108 (90 Base) MCG/ACT inhaler INHALE 2 PUFFS EVERY 6 HOURS NEEDED FOR WHEEZING 18 g 1 07/14/19 24 025 Discontinued(Re order (will not trigger notification to Pharmacy)) fluticasone (Flonase) 50 MCG/ACT nasal spray Administer 1 spray into each nostril Once per day. 16 g 3 12/22/19 25 025 Discontinued(Re order (will not trigger notification to Pharmacy)) fluticasone furoate (Arnuity Ellipta) 100 MCG/ACT inhaler INHALE 1 PUFF BY MOUTH EVERY DAY RINSE MOUTH AFTER USING. 30 each 2 12/22/19 25 025 Discontinued(Re order (will not trigger notification to Pharmacy)) albuterol (Ventolin HFA) 108 (90 Base) MCG/ACT inhaler Inhale 2 puffs every 6 (six) hours if needed for wheezing. 18 g 1 12/22/19 25 025 Discontinued(Re order (will not trigger notification to Pharmacy)) Active Problems Problem Noted Date Diagnosed Date Health care maintenance 01/03/2025 Assessment & Plan (01/03/2025 10:11 AM EST): - physical exam on 12/21/2024 - immunizations are up to date - Mammo at [facility] BI-RADS 1 on 12/06/2024 - s/p hysterectomy for endometrial carcinoma - Patient is a smoker and likely need LDCT - Refer for colonoscopy Chronic pain of left knee 12/21/2024 S/P total hysterectomy and bilateral salpingo-oo phorectomy 01/11/2024 Assessment & Plan (01/03/2025 9:59 AM EST): - total laparoscopic hysterectomy and bilateral salpingo-oophorectomy for endometrial cancer on 12/19/[address] Rojas - high risk for osteoporosis - evaluate with DEXA Assessment & Plan (01/11/2024 5:32 PM EST): [...] management Endometrial cancer 11/19/2023 Assessment & Plan (01/03/2025 10:00 AM EST): - AUB - [facility]: [facility], Dr. Horne. - Endometrial biopsy on 11/14/23. 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 - s/p TLH/BSO on 12/19/[address] Anglin - Recommended to reschedule appointment with Dr. Curiel Assessment & Plan (01/06/2024 12:11 PM EST): - AUB - [facility]OMCORN GR[facility] - Endometrial biopsy on 11/14/23. 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 - s/p TLH/BSO on 12/19/[address] Anglin - patient has appointment today with Dr. 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 Horne. - Endometrial biopsy on 11/14/23. 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 - Anemia 07/06/2023 Assessment & Plan (01/03/2025 10:01 AM EST): - in a setting of AUB, resolved after hysterectomy - continue current iron supplementation and repeat CBC in 3 mo Assessment & Plan (07/06/2023 6:31 AM EDT): [...] further evaluation Syncope 07/03/2023 Assessment & Plan (12/23/2024 10:48 PM EDT): - several syncopal episodes - SHYANN in 2017 and Holter monitor in 2019, which showed mostly normal sinus rhythm, with extremely rare premature beats - most recent episode in May 2023, seen in ED. Head CT was normal Assessment & Plan (07/06/2023 6:25 AM EDT): - several syncopal episodes - SHYANN in 2017 and Holter monitor in 2019, which showed mostly normal sinus rhythm, with extremely rare premature beats - most recent episode in May 2023, seen in ED. Head CT was normal Bilateral leg pain 04/01/2022 Assessment & Plan [...] time Tobacco use 04/01/2022 Assessment & Plan (12/23/2024 10:48 PM EDT): - continue working on smoking cessation Assessment & Plan (01/06/2024 12:13 PM EST): - continue working on smoking cessation Assessment & Plan (07/06/2023 6:24 AM EDT): - continue working on smoking cessation Assessment & Plan (04/01/2022 12:30 PM EST): - continue working on smoking cessation Generalized anxiety disorder 02/28/2022 Assessment & Plan (01/06/2024 12:13 PM EST): - previously connected with [facility]. Dr. Silva - previously taking medications, but she is no longer taking it or seeing [facility] provider - patient agreed to restart counseling. Will refer to S. - patient is also interested in medication. Will start Lexapro Assessment & Plan (07/06/2023 6:26 AM EDT): - previously connected with [facility]. Dr. Silva - previously taking medications, but she is no longer taking it or seeing S provider - continue taking care of behavioral health Assessment & Plan (04/01/2022 12:18 PM EST): - previously connected with [facility]. Dr. Silva - previously taking medications, but she is no longer taking it or seeing [facility] provider - continue taking care of behavioral health Posttraumatic stress disorder 02/03/2017 Assessment & Plan (01/03/2025 10:08 AM EST): - previously seeing behavioral health service provider - patient is able to contract her safety today Assessment & Plan (07/06/2023 6:26 AM EDT): - previously seeing behavioral health service provider - patient is able to contract her safety today Vitamin D deficiency 10/22/2016 Assessment & Plan (12/23/2024 10:30 PM EDT): - check vitamin D - previously on Vitamin D 2000 units daily - now at even higher risk for osteoporosis - restart Vit D Assessment & Plan (01/11/2024 5:51 PM EST): - check vitamin D - previously on Vitamin D 2000 units daily - now at even higher risk for osteoporosis - restart Vit D Assessment & Plan (07/06/2023 6:24 AM EDT): - check vitamin D and Tx accordingly Allergic rhinitis 04/28/2014 Assessment & Plan (01/03/2025 9:57 AM EST): - continue loratadine and fluticasone nasal - work on smoking cessation Assessment & Plan (07/06/2023 6:26 AM EDT): - continue loratadine and fluticasone nasal - work on smoking cessation Assessment & Plan (04/01/2022 12:36 PM EST): - continue loratadine and fluticasone nasal - work on smoking cessation Asthma 12/14/2012 Assessment & Plan (12/23/2024 10:38 PM EDT): - 10/12/21 PFT small airway disease, recommended methacholine challenge test - continue albuterol HFA prn - previously on Flovent HFA, but has not been adherent; will switch to mometasone (Asmanex) - consider ICS / LABA prn - schedule methacholine challenge test - work on smoking cessation Assessment & Plan (01/06/2024 11:29 AM EST): [...] showed endometrial polyp - upcoming appointment with [facility] Palpitation 07/03/2023 01/03/2025 Assessment & Plan (07/06/2023 6:23 AM EDT): - several syncopal episodes - SHYANN in 2017 and Holter monitor in 2019, which showed mostly normal sinus rhythm, with extremely rare premature beats Tinea pedis of both feet 04/01/202207/2023 Assessment & Plan (04/01/2022 12:14 PM EST): - aerate between toes - terbinafine topical Underweight 12/14/2012 01/11/2024 Encounters Date Type Department Care Team Description 12/21/2024 10:45 AM EDT Office Visit [facility] [address] [place] [phone] Lisbet Ribeiro MD Routine general medical examination at a health care facility (Primary Dx); Endometrial cancer (HCC); Chronic pain of left knee; Mild intermittent asthma without complication; Tobacco use; Syncope, unspecified syncope type; Screening for diabetes mellitus; Screening for lipid disorders; Weight gain; Fatigue, unspecified type; Vitamin D deficiency; Anemia, unspecified type; Routine screening for STI (sexually transmitted infection); Encounter for screening for respiratory tuberculosis; Allergic rhinitis, unspecified seasonality, unspecified trigger; Dietary counseling; Exercise counseling; Overweight; Posttraumatic stress disorder; Generalized anxiety disorder; S/P total hysterectomy and bilateral salpingo-oophorectomy ; Colon cancer screening; Health care maintenance 12/21/2024 Travel 12/20/2024 Telephone [facility] [address] [place] [phone] Lisbet Ribeiro MD chartprep 12/14/2024 Patient Outreach [address] [phone] Lisbet Ribeiro MD Pre-visit Planning (SDOH Screening negative and Tobacco screening positive) 12/06/2024 Orders Only [facility] [address] [place] [phone] Lisbet Ribeiro MD 12/04/2024 Refill [facility] [address] [place] [phone] Pita Avelar MD 11/26/2024 Refill [facility] [address] [place] [phone] Lisbet Ribeiro MD 11/08/[address] [phone] Lisbet Ribeiro MD Appointment Request 11/04/2024 Results Follow-Up [facility] [address] [place] [address] Lisbet Ribeiro MD XR Knee 1-2 Views Left from Last 3 Months Immunizations Immunization Administration Dates Next Due DTaP 06/18/1980, 9,01/16/1978,12/18,1977 Hep B, adult 03/18/2013,08/13/2007,09/18/2006 IPV 07/30/1978, 8,1977,10/18 Influenza injectable quadriv alent IIV4 with preservative 02/03/2017,12/29/2014 Influenza injectable quadriv alent preservative free 01/25/2020,12/01/2018,03/26/2016,04/28 Influenza, seasonal, injecta ble, preservative free 12/21/2024 MMR 04/07/1991,07/30/1978 Pfizer Covid-19 Vaccine 12+ 12/21/2024,0 07/02/2023,08/01/2021,08/15,07/21/2020 Pneumococcal Conjugate PCV 20 07/02/2023 Pneumococcal Polysaccharide [...] housing situation today? I have christopher claudio 12/14/[address] you li ve. Do you have problems with any of the following? None of the above 12/14/2024 Food Insecurity Answer Date Recorded Within the past 12 months, y ou worried that your food would run out before you got money to buy more: Never True 12/14/2024 Within the past 12 months,th e food you bought just didn't last and you didn't have enough money to get more: Never True Transportation Answer Date Recorded In the past 12 months, has l ack of transportation kept you from medical appts, meetings, work or from getting things needed for daily living? No 12/14/2024 Utilities Answer Date Recorded In the past 12 months, has t he electric, gas, oil or water company threatened to shut off services in your home? No 12/14/2024 Depression Answer Date Recorded Patient Health Questionnaire-2 Score 2 07/02/2023 Internet Access Answer Date Recorded Internet Access Q1 Yes 12/14/2024 Internet Access Q2 Not on file 12/14/2024 Comments No Sex and Gender Information Value Date Recorded Sex Assigned at Female 12/31/2021 10:15 AM EDT Legal Sex Female 10:15 AM EDT Gender Identity Female 12/31/2021 10:15 AM EDT Sexual Orientation Straight 12/31/2021 10 :15 AM EDT Last Filed Vital Signs Vital Sign Reading Time Taken Comments Blood Pressure 120/90 12/21/2024 11:03 AM EDT Pulse 101 12/21/2024 11:03 AM EDT Temperature 36.2 C (97.1 F) 12/21/2024 11:03 AM EDT Respiratory Rate 15 12/21/2024 11:03 AM EDT Oxygen Saturation 98% 12/21/2024 11:03 AM EDT Inhaled Oxygen Concentration - - Weight 57.7 kg (127 lb 3.2 oz) 12/21/2024 11:03 AM EDT Height 149.9 cm (4' 11 ) 12/21/2024 11:03 AM EDT Body Mass Index 25.69 12/21/2024 11:03 AM EDT Plan of Treatment Health Maintenance Due Date Last Done Comments CT Colonography 1977 Colonoscopy 1977 Colorectal Cancer Screening 1977 FIT DNA/Cologuard 1977 FIT 1977 FOBT 1977 Sigmoidoscopy 1977 Alcohol/Substance Use Screening 1989 Depression Screening 07/01/2024 07/02/2023, 07/02/19 24 Family Planning (PISQ) 01/10/2025 01/11/2024 SDOH Screening 12/14/2025 12/14/2024 Disability Screening 12/21/2025 12/21/2024 Tobacco Screening 01/03/2026 01/03/2025 Mammogram 12/06/2026 12/06/2024, 12/02, 12/01/2023, Additional history exists Zoster Vaccines (1 of 2) 06/24/2027 Lipid [...] 03/05, 03/26/2016 Pap Smear Discontinued 11/10/2023, 04/01/2022 COVID-19 Vaccine Completed 12/21/2024, 03/2023, 08/01/2021, Additional history exists Influenza Vaccine Completed 12/21/2024, , 12/01/2018, Additional history exists HIB Vaccines Aged Out No longer eligi [...] Procedure Name Priority Date/Time Associated Diagnosis Comments RETICULOCYTE COUNT Routine 01/05/2025 10 :05 AM EST Anemia, unspecified type CBC WITH AUTO DIFFERENTIAL Routine 01/05/2025 10:05 AM EST Anemia, unspecified type BI MAMMOGRAM SCREENING TOMOSYNTHESIS BILATERAL Routine 12/06/2024 10:28 AM EDT BASIC METABOLIC PANEL Routine 11/03/2024 2:59 PM EDT Vitamin D deficiency VITAMIN D,25-OH,TOTAL,IA Routine 11/03/2024 2:59 PM EDT Vitamin D deficiency HEMOGLOBIN A1C Routine 11/03/2024 2:59 PM EDT Screening for diabetes mellitus LIPID PANEL WITH REFLEX TO DIRECT LDL Routine 11/03/2024 2:59 PM EDT Screening for lipid disorders XR KNEE 1-2 VIEWS LEFT Routine 2:29 PM EDT Left knee pain, unspecified chronicity THINPREP IMAGING PAP AND HPV MRNA E6/E7 WITH REFLEX TO HPV 16,18/45 Routine 11/10/2023 10:46 AM EDT ZZZ HISTORICAL HEPATITIS C AB W/REFL TO HCV RNA, QN, PCR Routine 03/28/2020 1:55 PM EST HIV 1/2 ANTIGEN/ANTIBODY, FOURTH GENERATION W/RFL Routine 03/28/2020 1:55 PM EST from Last 3 Months or Most Recently Relevant to Health Maintenance Results * CBC auto differential (01/05/2025 10:05 AM EST) White Blood Count 7.9 4.8 - 10.8 X10*3/uL [facility] Red Blood Count 4.41 4.20 - 5.50 X10*6/uL [facility] Hemoglobin 14.1 12.0 - 16.0 g/dl [facility] Hematocrit 42.5 37.0 - 47.0 % [facility] Mean Corpuscular Volume 96.4 80.0 - 98.0 fL [facility] Mean Corpuscular Hemoglobin 32.0 27.0 - 33.0 pg [facility] Mean Corpuscular HGB Conc 33.2 31.0 - 35.0 g/dl [facility] Red Cell Distribution Width 13.4 11.0 - 16.0 % [facility] Platelet Count 311 160 - 400 X10*3/uL [facility] Mean Platelet Volume 9.5 9.4 - 12.3 fL [facility] Neutrophils Percent Auto 61.9 45 - 73 % [facility] Imm Gran Pct Auto 0.4 0.0 - 0.4 % [facility] Lymphocytes Percent Auto 30.5 20 - 40 % [facility] Monocytes Percent Auto 5.8 2 - 11 % [facility] Eosinophils Percent Auto 1.1 0 - 4 % [facility] Basophils Percent Auto 0.3 0 - 2 % [facility] NRBC Pct Auto 0.0 0.0 - 0.2 /100WBC [facility] Neutrophils Absolute Auto 4.9 2.0 - 8.3 x10*3/uL [facility] Imm Gran Abs Auto 0.03 0.00 - 0.03 X10*3/uL [facility] Lymphocytes Absolute Auto 2.4 1.2 - 4.9 X10*3/uL [facility] Monocytes Absolute Auto 0.5 0.1 - 1.2 X10*3/uL [facility] Eosinophils Absolute Auto 0.1 0.0 - 0.4 X10*3/uL [facility] Basophils Absolute Auto 0.0 0.0 - 0.2 X10*3/uL [facility] NRBC Abs Auto 0.000 0.0 - 0.012 X10*3/uL [facility] Blood Venous blood specimen / Unknown 01/05/2025 10:05 AM EST 01/05/2025 11:03 AM EST Lisbet Ribeiro MD LAB BLOOD ORDERABLES Final Resul t Performing Organization Address [facility] Phone Number [facility] [address] [place] [phone] * (ABNORMAL) Reticulocyte Count (01/05/2025 10:05 AM EST) Reticulocytes Absolute 0.078 0.026 - 0.095 X10*6/uL [facility] Immature Retic Fraction 3.8 3.0 - 15.9 % [facility] Retic HGB Equivalent 38.7(H) 30.0 - 35.0 pg [facility] Reticulocyte Percent 1.8 0.5 - 1.8 % [facility] Blood Venous blood specimen / Unknown 01/05/2025 10:05 AM EST 01/05/2025 11:03 AM EST Lisbet Ribeiro MD LAB BLOOD ORDERABLES Final Resul t Performing Organization Address [facility] Number [facility] [address] [place] [phone] * BI Mammogram Screening Tomosynthesis Bilateral (12/06/2024 10:28 AM EDT) Anatomical Region Laterality Modality Breast Bilateral Mammography 12/06/2024 10:2 8 AM EDT Narrative 12/12/2024 4:08 PM EDT [facility] [address] [place] [address] Mammography Report Signed Patient: Pita Benitez MR#: [id number] : 1975 Acct:[id number] Age/Sex: 49 / F ADM Date: 12/06/24 Loc: [facility] Attending Dr: Lisbet Ribeiro MD Ordering Physician: Lisbet Ribeiro MD Results: 1Negative Date of Service: 12/06/24 Follow Up: 1 Year From Orig inal Mammogram Procedure(s): MM tomosynthesis screening BI Accession Number(s): [id number] cc: Lisbet Ribeiro MD Reason For Exam: SCREENING EXAMINATION: MM SCREENING DIGITAL BREAST TOMOSYNTHESIS, BILATERAL CLINICAL INFORMATION: Screening. Asymptomatic. COMPARISON: Mammography: Comparison is made with available priors TECHNIQUE: Digital breast mammography with tomosynthesis is performed in both the craniocaudal and mediolateral oblique views along with computer-aided detection (CAD). FINDINGS: There are scattered areas of fibroglandular density. There are no significant masses, abnormal calcifications, or other abnormalities. MM/MM tomosynthesis screening BI IMPRESSION: No mammographic evidence of malignancy. ASSESSMENT: BI-RADS Category 1: Negative RECOMMENDATION: Routine annual mammography screening. 1 year F/U This examination should not preclude the clinical evaluation of a suspicious palpable abnormality. This patient's information was entered into a reminder system with a target due date for their next mammogram. Electronically signed by: Chantell Stein DO 12/12/2024 04:05 PM EDT Dictated By: Chantell Stein DO Signed By: <Electronically signed by Chantell Stein DO in OV> 12/12/24 1605 DD/ 1028 TD/TT: 12/06/24 1042 Rail Bender: Procedure Note Donotuseinterpreter, Image - 12/12/2024 [facility] [address] [place] [address] Mammography Report Signed Patient: Pita Benitez [facility]#: [id number] : 1975Acct:[id number] Age/Sex: 49 / FADM Date: 12/06/24 Loc: [facility] Attending Dr: Lisbet Ribeiro MD Ordering Physician: Lisbet Ribeiro MDResults: 1Negative Date of Service: 12/06/24Follow Up: 1 Year From [facility] Mammogram Procedure(s): MM tomosynthesis screening BI Accession Number(s): [id number] cc: Lisbet Ribeiro MD Reason For Exam: SCREENING EXAMINATION: MM SCREENING DIGITAL BREAST TOMOSYNTHESIS, BILATERAL CLINICAL INFORMATION: Screening. Asymptomatic. COMPARISON: Mammography: Comparison is made with available priors TECHNIQUE: Digital breast mammography with tomosynthesis is performed in both the craniocaudal and mediolateral oblique views along with computer-aided detection (CAD). FINDINGS: There are scattered areas of fibroglandular density. There are no significant masses, abnormal calcifications, or other abnormalities. MM/MM tomosynthesis screening BI IMPRESSION: No mammographic evidence of malignancy. ASSESSMENT: BI-RADS Category 1: Negative RECOMMENDATION: Routine annual mammography screening. 1 year F/U This examination should not preclude the clinical evaluation of a suspicious palpable abnormality. This patient's information was entered into a reminder system with a target due date for their next mammogram. Electronically signed by: Chantlel Stein DO 12/12/2024 04:05 PM EDT Dictated By: Chantell Stein DO Signed By: <Electronically signed by Chantell Stein DO in OV> 12/12/24 1605 DD/ 1028 TD/TT: 12/06/24 1042 Rail Bender: Lisbet Ribeiro MD [facility] BI PROCEDURES Edited Result - Final * Vitamin D, 25-Hydroxy, Total, Immunoassay (11/03/2024 2:59 PM EDT) Vitamin D 25-OH Total 36.2 >30 ng/mL [facility] Comment: Health Based Reference Values*< 20 ng/mL Ihovmdxnx69-99 ng/mL Insufficient> 30 ng/mL Sufficient*Brandy SANTAMARIA. N [...] MD LAB BLOOD ORDERABLES Final Resul t [facility] [address] [place] [phone] * (ABNORMAL) Lipid Panel with Reflex to Direct LDL (11/03/2024 2:59 PM EDT) Triglycerides 348(H) <150 mg/dL [facility] Comment:Slight Lipemia.Dee Dee able Triglyceride: less than 150 mg/dLBorderline High Triglyceride 150-199 mg/dLHigh Triglyceride: 200-499 mg/dLVery High Triglyceride: greater than or equal to 5OO mg/dL Cholesterol 184 <200 mg/dL [facility] Comment:Desirable Cholestero l: less than 200 mg/dLBorderline High Cholesterol: 200-239 mg/dLHigh Cholesterol: greater than 239 mg/dL LDL Cholesterol Calculated 61 <100 mg/dL [facility] Comment:Desirable LDL: less than 100 mg/dLNear Optimal/Above Optimal LDL: 110- 129 mg/dLBorderline High LDL: 130-159 mg/dLHigh LDL: 160-189 mg/dLVery High LDL: greater than or equal to 190 mg/dL HDL Cholesterol 54 >40 mg/dL [facility] Comment:Desirable HDL: great er than 40 mg/dL Note: This HDL assay may give artificially low results in patients with liver disease. Blood 11/03/2024 2:59 PM EDT 11/03/2024 4:17 PM EDT Lisbet Ribeiro MD LAB BLOOD ORDERABLES Final Resul t Performing Organization Address [facility] Co de Phone Number [facility] [address] [place] [phone] * Hemoglobin A1c (11/03/2024 2:59 PM EDT) Hemoglobin A1c 5.4 <6.0 % [facility] Comment:Hemoglobin A1C Refer ence Range Adults: 4.8 - 6.0 % Non diabetic: < 6.0 % Goal: < 7.0 %Additional Action Suggested: > 8.0 %Note: Hemoglobin A1c results are invalid for patients with abnormal amounts of HbF. Blood transfusions may impact the HbA1c concentration in the patient sample. Estimated Average Glucose 108 mg/dL [facility] Comment:eAG = Estimated ave rage glucose which is %A1C expressed asaverage glucose, using the formula of the M2F-IvsjglwBvxplis Glucose study (ADAG), Diabetes Care, Vol.31,#8,Oct. 2007 Blood Venous blood specimen / Unknown 11/03/2024 2:59 PM EDT 11/03/2024 4:17 PM EDT us Lisbet Ribeiro MD LAB BLOOD ORDERABLES Final Resul t Performing Organization Address [facility] Co de Phone Number [facility] [address] [place] [phone] * (ABNORMAL) Basic Metabolic Panel (11/03/2024 2:59 PM EDT) Sodium 139 135 - 145 mmol/L [facility] Potassium 3.9 3.3 - 5.1 mmol/L [facility] Chloride 107 96 - 108 mmol/L [facility] Carbon Dioxide 25 22 - 29 mmol/L [facility] Anion Gap 11(L) 12 - 20 [facility] Urea Nitrogen (BUN) 15 9 - 16 mg/dL [facility] Creatinine, Serum 0.88 0.5 - 1.4 mg/dL [facility] Estimated Glomerular Filt Rate >60 [facility] Comment:Chronic Kidney Disea se: Estimated GFR < 60 mL/min/1.43k0Tomvxt Kidney Disease: Estimated GFR < 15 mL/min/1.73m2 Glucose 89 60 - 115 mg/dL [facility] Calcium 9.1 8.4 - 10.2 mg/dL [facility] Blood Venous blood specimen / Unknown 11/03/2024 2:59 PM EDT 11/03/2024 4:17 PM EDT us Lisbet Ribeiro MD LAB BLOOD ORDERABLES Final Resul t Performing Organization Address City/State/[facility] Co de Phone Number [facility] [address] [place] [phone] * XR Knee 1-2 Views Left (11/03/2024 2:29 PM EDT) Anatomical Region Laterality Modality Lower Extremities, Knee Left Radiogra phic Imaging 11/03/2024 2:29 PM EDT Narrative 11/03/2024 3:29 PM EDT [address] [address] XRay Report Signed Patient: Pita Benitez MR#: [id number] : 1975 Acct:[id number] Age/Sex: 49 / F ADM Date: 11/03/24 Loc: .CL Attending Dr: Lisbet Ribeiro MD Ordering Physician: Lisbet Ribeiro MD Date of Service: 11/03/24 Procedure(s): XR knee LT 2V Accession Number(s): [id number] cc: Lisbet Ribeiro MD Reason for Exam: [...] Thang Higgins MD 11/03/2024 03:27 PM EDT RP Dictated By: Thang Higgins MD Signed By: <Electronically signed by Thang Higgins MD in OV> 11/03/24 1527 DD/ 1429 TD/TT: 11/03/24 1430 Rail Bender: Procedure Note Donotuseinterpreter, Image - 11/03/[address] [address] XRay Report Signed Patient: Pita Benitez MMR#: [id number] : 1975Acct:[id number] Age/Sex: 49 / FADM Date: 11/03/24 Loc: [facility] Attending Dr: Lisbet Ribeiro MD Ordering Physician: Lisbet Ribeiro MD Date of Service: 11/03/24 Procedure(s): XR knee LT 2V Accession Number(s): [id number] cc: Lisbet Ribeiro MD Reason for Exam: [...] Thang Higgins MD 11/03/2024 03:27 PM EDT RP Dictated By: Thang Higgins MD Signed By: <Electronically signed by Thang Higgins MD in OV> 11/03/24 1527 DD/ 1429 TD/TT: 11/03/24 1430 Rail Bender: Lisbet Ribeiro MD IMG XR PROCEDURES Final Result * ThinPrep Imaging Pap and HPV mRNA E6/E7 with Reflex to HPV 16,18/45 (11/10/2023 10:46 AM EDT) HPV 16 RNA [facility] HPV 18/45 RNA [facility] HPV nRNA E6/E7 Not Detected Not Detected [facility] Comment:Methodology: Transcr iption-Mediated AmplificationThis assay detects E6/E7 viral messenger RNA (mRNA) from 14high-risk HPV types (16,18,31,33,35,39,45,51,52,56,58,59,66,68).Cervical sources are required for HPV testing.If a vaginal source from a patient who has had atotal hysterectomy with removal of cervix wassubmitted, please contact the testing laboratoryfor alternative testing options.For additional information, please refer tohttp://education.Gini.net/faq/MPY999s4(This link if provided for information/educational purposes only.)THIS TEST WAS PERFORMED AT:[facility] [address] [id number] LR MD SOURCE: SEE NOTE [facility] Comment:Cervix Report Status: [facility] Clinical Information: SEE NOTE [facility] Comment:ROUTINE LMP: SEE NOTE [facility] Comment:NONE GIVEN Prev. PAP: SEE NOTE [facility] Comment:NONE GIVEN Prev. BX: SEE NOTE [facility] Comment:NONE GIVEN Statement Of Adequacy: SEE NOTE [facility] Comment:Satisfactory for zoya luation.Endocervical/transformation zone componentpresent. General Categorization: [facility] Interpretation/Result: SEE NOTE [facility] Comment:Cytology Results: Ne gative for intraepitheliallesion or malignancy. Cytology Comment SEE NOTE [facility] Comment:This Pap test has be en evaluated with computerassisted technology. Inspector And Mender: SEE NOTE [facility] Comment:SL, CT(ASCP)CT [place] location: [place] [address] Review Inspector And Mender: [facility] Pathologist [facility] PAP Infection [facility] See Note SEE NOTE [facility] Comment:EXPLANATORY NOTE:The Pap is a screening test for cervical cancer. It isnot a diagnostic test and is subject to false negativeand false positive results. It is most reliable when asatisfactory sample, regularly obtained, is submittedwith relevant clinical findings and history, and whenthe Pap result is evaluated along with historic andcurrent clinical information. 11/10/2023 10:4 6 AM EDT 11/10/2023 2:08 PM EDT Narrative [facility] - 11/13/2023 11:45 AM EDT [...] ORD ERABLES Final Result Performing Organization Address [facility] Co de Phone Number [facility] [address] [place] [phone] * HEPATITIS C AB W/REFL TO HCV RNA, QN, PCR (03/28/2020 1:55 PM EST) HEPATITIS C ANTIBODY NON-REACT CAMPBELL NON-REACT CAMPBELL [facility] INDEX 0.01 <1.00 [facility] Comment: HCV antibody was non-reactive. There is no laboratory evidence of HCV infection. In most cases, no further action is required. However, if recent HCV exposure is suspected, a test for HCV RNA (test code 12444) is suggested. For additional information please refer to http://education.ZEturf.Tailored/faq/RFQ44n4 (This link is being provided for informational/ educational purposes only.) 03/28/2020 1:55 PM EST us Lisbet Ribeiro MD HISTORICAL/NON ORDERABLE LABS Fi nal Result [facility] [address] * HIV 1/2 ANTIGEN/ANTIBODY,FOURTH GENERATION W/RFL (03/28/2020 1:55 PM EST) HIV-1/2 ANTIGEN AND ANTIBODIES, 4TH GENERATION W/ REFLEX NON-REACT CAMPBELL NON-REACT CAMPBELL [facility] Comment: HIV-1 antigen and HIV-1/HIV-2 [...] purpose. For additional information please refer to http://Hookit.Gini.net/faq/FKW424 (This link is being provided for informational/ educational purposes only.) The performance of this assay has not been clinically validated in patients less than 2 years old. 03/28/2020 1:55 PM EST us Lisbet Ribeiro MD LAB BLOOD ORDERABLES Final Resul t Performing Organization Address City/State/[facility] Co de Phone Number [facility] [address] from Last 3 Months or Most Recently Relevant to Health Maintenance Insurance [employer] Care Teams Resident Surgeon Relationship Specialty Start Date End Date Lisbet Ribeiro MD [address] [place] [phone] PCP - General Family Medicine 01/01/12
--- OUTSIDE RECORDS SUMMARY | 2025-01-05 11:32 | XMS_ITS | Encounter Summary ---
Author Organization [employer] Address [address] [facility] [address] [place] [address] Care Team Providers Care Stars Specialist Name Role Phone Lisbet Ribeiro MD Primary Care Provider [phone] Encounter Details Date Type Department Care Team ([facility] st Contact Info) Description 11/04/2024 Results Follow-Up [facility] [address] [place], [place] [phone] Lisbet Ribeiro MD [address] [place], [place] [phone] XR Knee 1-2 Views Left Social History [...] documented as of this encounter Care Teams Stars Specialist Relationship Specialty Start Date End Date Lisbet Ribeiro MD [address] [place] [address] PCP - General Family Medicine 01/01/12 documented as of this encounter
--- OUTSIDE RECORDS SUMMARY | 2025-01-05 11:32 | XMS_ITS | Encounter Summary ---
Author Organization [employer] Address [address] [facility] [address] [place] [address] Care Team Providers Care Hydraulic Boom Operator Name Role Phone Lisbet Ribeiro MD Primary Care Provider Reason for Visit * Reason Comments Med Refill Encounter Details Date Type Department Care Team ([facility] Contact Info) Description 03/03/2024 Refill [facility] [address] [place], [place] [phone] Nina Shearer CNM [address] [place] [address] Social History Tobacco Use Types Packs/Day Years [...] documented as of this encounter Care Teams Hydraulic Boom Operator Relationship Specialty Start Date End Date Lisbet Ribeiro MD [address] [place] [phone] PCP - General Family Medicine 01/01/12 documented as of this encounter
[2025-01-05 12:03] LABS: Alanine Aminotransferase 13 U/L (0-31); Albumin Level 4.4 g/dL (3.5-5.0); Alkaline Phosphatase 83 U/L (39-117); Anion Gap 10 (12-20); Aspartate Amino Transferase 18 U/L (5-31); Blood Urea Nitrogen 13 mg/dL (9-16); Calcium 9.2 mg/dL (8.4-10.2); Carbon Dioxide 27 mmol/L (22-29); Chloride 110 mmol/L (96-108); Estimated Glomerular Filt Rate > 60; Iron 84 mcg/dL (30-160); Percent Iron Saturation 25 % (15-50); Potassium 3.5 mmol/L (3.3-5.1); Sodium 143 mmol/L (135-145); Total Iron Binding Capacity 335 mcg/dL (228-428); Total Protein 7.4 g/dL (6.5-8.0); Unsaturated Iron Binding 251 ug/dL
[2025-01-05 12:33] LABS: Ferritin 30 ng/mL (10-250)
[2025-01-05 12:47] LABS: Folate 5.5 ng/mL (> or = 4.0); Vitamin B12 203 pg/mL (200-900)
[2025-01-06 07:43] LABS: Syphilis Screen Nonreactive (Nonreactive)
[2025-01-06 08:02] LABS: HBS Num1 7.87 mIU/mL (0-7.99); HBc Num1 0.05 S/CO (0.00-0.79); HBsAGNum1 0.35 S/CO (0.00-0.99); HIV Num 1 0.06 S/CO (0.00-0.99); Hepatitis B Surface Antigen Negative (Negative); ~HepC Num1 0.06 S/CO (0.00-0.79); ~Hepatitis B Surface Antibody NONREACTIVE (Nonreactive); ~Hepatitis C Antibody Nonreactive (Nonreactive)
[2025-01-07 08:08] LABS: ~Hepatitis A Antibody IgG 0.42 S/CO (0.00-0.99)
[2025-01-08 17:48] LABS: TS Negative Control Passed; TS Panel A 2; TS Panel B 19; TS Positive Control Passed; TSpotTB Positive (Negative)
== END 2025-01-05 10:02 | disposition home or self-care (01) ==
LOC: HO.HHCL 10:01
PROVIDERS: PCP Family Medicine; Visit Provider Family Medicine
DX: Z11.3 Encounter for screening for infections with a predominantly sexual mode of transmission (principal); Z11.1 Encounter for screening for respiratory tuberculosis; Z11.4 Encounter for screening for human immunodeficiency virus [HIV]; D64.9 Anemia, unspecified; R63.5 Abnormal weight gain; E55.9 Vitamin D deficiency, unspecified; R53.83 Other fatigue
CPT/HCPCS: 36415; 80053; 82306; 82607; 82728; 82746; 83540; 84443; 85025; 85045; 86481; 86704; 86706; 86708; 86780; 86803; 87340; 87389

== ENCOUNTER 2025-02-08 13:47 | Outpatient (REF) | payer BC, SELFPAY ==
--- NOTE | ~2025-02-08 | XR_ITS ---
EXAMINATION: XR CHEST 2 VIEWS HISTORY: Positive T-spot TB COMPARISON: Comparison is made with the prior examination dated 02/03/2020. FINDINGS: PA and lateral views of the chest are submitted. The lungs are expanded and clear. There is no pleural effusion, pneumothorax, or pulmonary vascular congestion. The heart is normal in size. The bones are intact. XR/XR chest 2V IMPRESSION: No acute cardiopulmonary abnormality. Electronically signed by: Femi Olguin MD 02/08/2025 02:24 PM EST
== END 2025-02-08 13:48 | disposition home or self-care (01) ==
LOC: HO.HHCX 13:47
PROVIDERS: PCP Family Medicine; Visit Provider Family Medicine
DX: R76.11 Nonspecific reaction to tuberculin skin test without active tuberculosis (principal); Z86.11 Personal history of tuberculosis
CPT/HCPCS: 71046

== ENCOUNTER → 2025-02-08 13:57 | Outpatient (BNV) | payer BC, SELFPAY | PROVIDERS: PCP Family Medicine; Visit Provider Radiology Diagnostic Radiology | DX: R76.11 Nonspecific reaction to tuberculin skin test without active tuberculosis (principal) | CPT/HCPCS: 71046 ==